=== PATIENT | male | born 1945 | race Caucasian/White ===

== ENCOUNTER 2019-05-25 13:56 | Observation (INO) | payer MEDICARE, SELFPAY ==
[2019-05-25] VITALS (11 sets, daily range): BP systolic 145–177; BP diastolic 72–93; PULSE 66–87; RESP 13–17; TEMP 36.7–36.9; O2SAT 95–98; BMI 30.2; BMI 26.9
--- NOTE | 2019-05-25 14:00 | NURSING ---
[id number] STROKE ALERT CALLED. CHEMISTRY SPECIALIST
--- NOTE | 2019-05-25 14:01 | NURSING ---
NO OLD EKGS
--- NOTE | 2019-05-25 14:03 | EKG12_ITS ---
Test Reason : NEURO S/X Blood Pressure : / mmHG Vent. Rate : 062 BPM Atrial Rate : 062 BPM P-R Int : 172 ms QRS Dur : 098 ms QT Int : 404 ms P-R-T Axes : 040 -22 021 degrees QTc Int : 410 ms Normal sinus rhythm Moderate voltage criteria for LVH, may be normal variant Poor R-Wave Progression Borderline ECG Confirmed by BYRON CHACKO, DIANNA ([id number]), city editor AZUL CLAROS ([id number]) on 05/29/2019 9:29:05 AM Referred By: LYNNE Confirmed By:DIANNA MATTHEWS MD
--- NOTE | 2019-05-25 14:03 | CT_ITS ---
STUDY: CT BRAIN WITHOUT CONTRAST REASON FOR EXAM: Male, 73 years old. CVA. RADIATION DOSAGE (If Supplied By Facility): CTDIvol = ( 44.99 ) mGy, DLP = ( 829.85 ) mGycm TECHNIQUE: Transaxial CT imaging of the brain was performed without administration of intravenous contrast material. Individualized dose optimization techniques were used for this CT. COMPARISON: No relevant priors. FINDINGS: Normal soft tissue structures. Normal calvarium. There is mild cerebral atrophy with widening of the extra-axial spaces and ventricular dilatation. Normal white matter tracts of the cerebral hemispheres. Normal basal ganglia and thalami. Normal brainstem. There is mild cerebellar atrophy. There is no intracranial hemorrhage. There are no findings of an acute ischemic infarction. Atherosclerotic calcification of the cavernous portions of the internal carotid arteries as well as the vertebral arteries. Partial opacification of the left maxillary sinus and ethmoid sinuses. CT/Brain/Head without Contrast IMPRESSION: Chronic involutional changes of the brain. Partial opacification of the left maxillary sinus and ethmoid sinuses. N.B. : The above information has been verbally conveyed by Brendon Jerome to Faizan Mike on 05/25/2019 14:14:56 (ET). Electronically Signed: Brendno Jerome, at 14:16 EDT , Service support ,
[2019-05-25 14:09] LABS: Absolute Lymphocyte Count 1.91 X10^3/uL (0.83-4.51); Absolute Neutrophil Count 4.5 X10^3/uL (2.0-7.7); Basophil# 0.04 X10^3/uL; Basophil% 0.6 % (0-1); Eosinophil# 0.34 X10^3/uL; Eosinophils% 4.7 % (0-5); Hematocrit 47.3 % (40-54); Hemoglobin 15.7 g/dL (13.0-16.5); Lymphocyte # 1.91 X10^3/ul (4.0); Lymphocyte % 26.3 % (19-41); Mean Corp Hgb Conc 33.2 g/dL (32-36); Mean Corpuscular Hgb 28.5 pg (27.0-32.0); Mean Platelet Vol. 10.4 fl (6.2-12.0); Monocyte# 0.47 X10^3/uL; Monocyte% 6.5 % (0-10); NRBC Flagged by Analyzer 0 % (0-5); Neutrophil # 4.48 X10^3/uL (2.7-7.7); Neutrophil % 61.6 % (47-70); Platelet Count 192 K/mm3 (150-450); RBC Distribution Width CV 12.7 % (11.6-14.6); RBC Distribution Width SD 39.5 fl (35.1-43.9); White Blood Count 7.3 K/mm3 (4.4-11.0)
--- NOTE | 2019-05-25 14:15 | RAD_ITS ---
STUDY: X-RAY CHEST REASON FOR EXAM: Male, 73 years old. Cough. TECHNIQUE: Single AP portable view of the chest. COMPARISON: None. FINDINGS: EKG electrodes are seen. The lungs are clear and expanded. There is no demonstrated pleural abnormality. Normal size heart. Normal mediastinum and angel. Normal visualized pulmonary arteries. There is atherosclerotic calcification of the aortic arch with tortuosity. There are diffuse degenerative changes of the visualized thoracic spine. Normal visualized ribs, clavicles, and shoulders. There is no demonstrated abnormality of the visualized soft tissue structures of the upper abdomen. RAD/Chest 1 View IMPRESSION: No acute abnormality is seen. Electronically Signed: Brendon Jerome, at 14:30 EDT , Service support ,
[2019-05-25 14:16] LABS: Prothrombin Time (Protime)PT. 12.9 SECONDS (11.7-14.9)
[2019-05-25 14:17] LABS: Partial Thromboplast Time 27.5 Seconds (24.1-36.2)
[2019-05-25 14:26] LABS: Anion Gap 8 (5-15); BUN 15 mg/dL (7-18); BUN/Creat Ratio 10.5 RATIO (10-20); Calcium,Total 9.8 mg/dL (8.5-10.1); Chloride 102 mmol/L (98-107); Creatinine, Serum 1.43 mg/dL (0.70-1.30); EST Glomerular Filtration Rate 51 mL/min (>60); Est Glom Filt Rate - Afr Amer 62 mL/min (>60); Estimated Creatinine Clearance 43.18 ml/min; Glucose 113 mg/dL (74-106); Potassium 4.8 mmol/L (3.5-5.1); Sodium Level 137 mmol/L (136-145)
--- NOTE | 2019-05-25 14:46 | ED.DCSUM_ITS ---
- ER Visit Summary Date of Service: 05/25/19 Chief Complaint: Left leg weakness and paresthesias History of Present Illness: The patient is a 73 M who presents with left leg weakness and paresthesias. Symptoms started about 30 minutes prior to presentation. He was helping a friend when he had to sit down because he did not feel right. He noted some weakness of his left arm and leg and was having paresthesias of his leg and face. He states that his arm is better and he has no facial numbness but he still has the lower leg symptoms. Denies any falls or trauma. No history of stroke in the past. He denies a headache. He is not on any blood thinning medications. Physical Examination: Vital signs reviewed. HEENT exam unremarkable. Heart is regular rate and rhythm without murmurs. Lungs are clear bilaterally. Abdomen is soft and nontender. Skin exam reveals no rashes. His stroke scale score is 2, 1 for left leg weakness and 1 for sensory. His neurologic exam is otherwise normal Test Results: CAT scan of the head reveals chronic findings with nothing acute. EKG was sinus rhythm with a rate of 62. CBC is normal. Creatinine is 1.43. Troponin normal Emergency Department Course and Treatment: Stroke team was called prehospital. The [facility] neurologist evaluated the patient and his NIH actually improved slightly. He feels this is likely a TIA. We will not give TPA due to low NIH. His ABCD 2 score is 6 which is high risk due to his age, blood pressure, symptoms and history of diabetes. Patient was discussed with the hospitalist and the patient will be admitted to the hospital Treatment Plan: [] Disposition: Admit Impression: TIA This note was generated with [employer] dictation software. It may contain incorrect words, spelling, and punctuation that were not noted in review of the chart prior to signing ED Disposition - Plan for ED Patient: Referrals: Joaquin Foster [Primary Care Provider] -
[2019-05-25] MEDS: Aspirin 325 MG Tablet PO (15:14)
--- NOTE | 2019-05-25 15:23 | CHAPLAIN ---
Type of Pastoral Visit ___ Initial Visit ___ Follow-up Visit ___ On-call Visit ___ General Patient Visit ___ Spiritual Assessment ___ Family Conference ___ Bereavement _x__ Rapid Response ___ Code Blue ___ Other (describe below) Pastoral Care Referral From ___ Patient ___ Family ___ Nurse ___ Physician ___ Formstone Fitter ___ Candy Dipper _x__ Other (describe below) Sacrament/Intervention _x__ Active listening ___ Anointing ___ Caodaism ___ Bereavement ___ Communion ___ Lucrecia exploration ___ ___ Life review _x__ Prayer ___ Reconciliation ___ Sacrament of Sick _x__ Supportive presence ___ Wedding ___ Other (describe below) Pastoral Comments met with family members and escorted them to patient room at appropriate time; daughter requested prayer for pt; after testing done this chute puller made introduction and offer of support to patient;
--- NOTE | 2019-05-25 15:57 | HP.PCM_ITS ---
Problem List (1) TIA (transient ischemic attack) Status: Acute History of Present Illness Date of Admission: 05/25/19 Chief Complaint: left sided weakness The patient is a 73 year old M who was in his normal state of health but around 1230 this afternoon, patient was with some friends and then noted that his left side was weak and numb. [place] that his lower lip on his left was numb and try to raise his left arm and noticed that it was ataxic. Patient was brought to the emergency room and underwent a work-up for stroke. Patient also had a telemedicine stroke doctor from [facility] and did not feel the patient required TPA. Symptoms are improving greatly and essentially resolved at this time. Patient is never had a stroke before. [] Past Medical History Medical History: Medical History (Last Updated 05/25/19 @ 16:00 by Uriel Menezes DO) BPH (benign prostatic hyperplasia) N40.0 DM2 (diabetes mellitus, type 2) E11.9 HTN (hypertension) I10 Allergies No Known Allergies Allergy (Verified 05/25/19 14:13) Home Medications: Ambulatory Orders Medication Instructions Recorded Amlodipine Besylate/Benazepril 1 ea PO DAILY 05/25/19 [Amlodipine-Benazepril 5-10 mg] Lisinopril 5 mg PO DAILY 05/25/19 Metformin HCl [Metformin HCl ER] 500 mg PO DAILY 05/25/19 Simvastatin 20 mg PO QHS 05/25/19 Tamsulosin HCl 0.4 mg PO DAILY 05/25/19 Lives: Spouse/ Significant Other Smoking Status: Never smoker Tobacco Use: Non-smoker Alcohol: None Drugs: None - *Family History Maternal History Items: - - no CVA Review of Systems Constitutional: Denies: Anorexia, Chills, Fever Eyes: Denies: Blurred vision, Double vision HEENT: Denies: Head Aches, Sinus Congestion, Sinus Drainage Cardiovascular: Reports: Chest Pain - chest pain 3 times the past year he has had some chest pain that feels like baking soda water something very exertional. This is not consistent when he does think that are very exertional but occur very sporadically.. Denies: Palpitations Respiratory: Denies: Cough, Shortness of breath at rest, Sputum production Gastrointestinal: Denies: Abdominal Pain, Nausea, Vomiting Genitourinary: Reports: Frequency. Denies: Dysuria Musculoskeletal: Denies: Joint Pain, Joint Tenderness Skin: Denies: Rash, Wounds Neurological: Reports: Focal weakness. Denies: Slurred speech, Headaches, Incoordination Psychiatric: Denies: Anxiety, Depression Endocrine: Denies: Change in Body Habitus, Heat/ Cold Intolerance Hematologic/ Lymphatic: Denies: Easy Bruising, Easy Bleeding, Hx of blood clot Comment: A 10 point review of systems were negative except as mentioned in the history of present illness and the other review of systems. VTE Information - Inpt Only VTE Present on Admission: No VTE Mechan Device Prophylaxis: None VTE Pharm Prophylaxis ordered?: Yes Patient Problems: Active and Suspected Problems (Last Updated 05/25/19 @ 16:00 by Uriel Menezes DO) TIA (transient ischemic attack) (Acute) - Physical Exam Vitals/I&O's: Vital Signs Temp Pulse Resp BP Pulse Ox 36.7 C 78 17 167/88 H 95 05/25/19 14:05 05/25/19 15:36 05/25/19 15:36 05/25/19 15:36 05/25/19 14:33 Oxygen Delivery Method Room Air Weight: 90 kg Body Mass Index (BMI) 30.2 Finger Stick Blood Glucose 105 General: Alert, Cooperative, No apparent distress, Well developed, Well nourished HEENT: Atraumatic, PERRLA, EOMI, Normocephalic Oral: Moist Mucosa, No Gingival or Mucosal Lesions/ Ulcerations Neck: No Nodes, Trachea Midline Lungs: Clear to auscultation, Normal air movement, No rhonchi, No wheeze, No rales, Diminished Cardiovascular: Regular rate, Regular Rhythm, Normal S1, Normal S2, No murmurs Abdomen: Bowel Sounds Present, Soft, Non Tender, Non-Distended, No Hepato- splenomegaly Extremities: No edema, No Calf Tenderness Skin: No rashes, No breakdown Musculoskeletal: No Tenderness to Palpation of Joints or Extremities, No Muscle Wasting Neurological: Cranial nerves II-XII grossly intact, Deep Tendon Reflexes 2+/4 and Symmetrical, Neuro grossly intact, Motor Exam 5/5 strength throughout, Sensory exam intact to light touch and pain, Coordination normal Psych/Mental Status: Normal Affect, Appropriate Laboratory Results 05/25/19 14:01: WBC 7.3, RBC 5.50, Hgb 15.7, Hct 47.3, MCV 86.0, MCH 28.5, MCHC 33.2, RDW Std Deviation 39.5, RDW Coeff of Stefano 12.7, Plt Count 192, MPV 10.4, Immature Gran % (Auto) 0.300, Neut % (Auto) 61.6, Lymph % (Auto) 26.3, Chaffee % (Auto) 6.5, Eos % (Auto) 4.7, Baso % (Auto) 0.6, Absolute Neuts (auto) 4.5, Absolute Lymphs (auto) 1.91, Nucleated RBC % 0 05/25/19 14:01: PT 12.9, INR 1.0, APTT 27.5 05/25/19 14:01: Sodium 137, Potassium 4.8, Chloride 102, Carbon Dioxide 27.0, Anion Gap 8, BUN 15, Creatinine 1.43 H, Estim Creat Clear Calc 43.18, Est GFR (MDRD) Af Amer 62, Est GFR (MDRD) Non-Af 51 L, BUN/Creatinine Ratio 10.5, Glucose 113 H, Calcium 9.8, Troponin I < 0.015 EKG reviewed and showed normal sinus rhythm without any acute changes. Clinical Impression(s) from Imaging Studies Brain CT 05/25/19 14:03 IMPRESSION: Chronic involutional changes of the brain. Partial opacification of the left maxillary sinus and ethmoid sinuses. N.B. : The above information has been verbally conveyed by Brendon Jerome to Faizan [facility] on 05/25/2019 14:14:56 (ET). Electronically Signed: Brendon Jerome, at 14:16 EDT , Service support , ADDENDUM: 05/25/19 1423 IMPRESSION: Chronic involutional changes of the brain. Partial opacification of the left maxillary sinus and ethmoid sinuses. N.B. : The above information has been verbally conveyed by Brendon Jerome to Faizan [facility] on 05/25/2019 14:14:56 (ET). Electronically Signed: Brendon Jerome, at 14:16 EDT , Service support , Chest X-Ray 05/25/19 14:15 IMPRESSION: No acute abnormality is seen. Electronically Signed: Brendon Jerome, at 14:30 EDT , Service support , Assessment/Plan All Active Problems (Last Updated 05/25/19 @ 16:00 by Uriel Menezes DO) TIA (transient ischemic attack) (Acute) 1. Suspected acute TIA * Symptoms are essentially resolved at this time * NIH is currently 0 * Patient will be on aspirin as well as statin * MRI of the brain, MRA of the head neck, echocardiogram * Evaluation by physical and Occupational Therapy * Neurology consultation 2. Diabetes mellitus type 2 * Check an A1c * Continue with metformin * Signed scale insulin for now 3. Hypertension * Elevated at this time * Will permit hypertension because of the possible acute TIA or stroke 4. VTE prophylaxis with enoxaparin. Case discussed with the patient's family at bedside. Code Visit Inpatient E&M: 07086 Init Hosp L3
--- NOTE | 2019-05-25 16:04 | ECHOD_ITS ---
Reason For Study: TIA/CVA Procedure This was a 2D Doppler, Color Flow transthoracic echocardiogram. The study was technically difficult. Exam performed portable in patient room. Left Ventricle Normal LV size. Left ventricular systolic function is normal. The estimated ejection fraction is 65 %. No evidence for diastolic dysfunction. No regional wall motion abnormalities noted. Right Ventricle Normal RV size. Normal systolic function. Atria Normal left atrium. Normal right atrium. No doppler evidence for ASD. Mitral Valve There is no mitral annular calcification. Mild focal mitral valve calcification of the anterior leaflet. Trivial mitral valve insufficiency. Tricuspid Valve Normal tricuspid valve. Trivial tricuspid valve insufficiency. Right ventricular systolic pressure estimated to be 28 mmHg. Aortic Valve Trisinus/trileaflet aortic valve. Mild focal aortic valve calcification. Trivial aortic valve insufficiency. Pulmonic Valve The pulmonic valve is not well visualized. Mild (1+) pulmonic valve insufficiency. Great Vessels Normal sized aortic root. Pericardium/Pleural No pericardial effusion. Medication Performed a rapid injection of agitated mix of 9 cc saline and 1cc air to assess for atrial septal defect. MMode/2D Measurements & Calculations LVIDd: 4.9 cm IVSd: 1.1 cm Ao root diam: 3.3 cm LVIDs: 2.9 cm LVPWd: 1.1 cm RVDd: 3.0 cm FS: 39.8 % LAV(MOD-bp): 42.2 ml LA A4 area: 17.0 cm2 LA dimension(2D): 4.3 cm LAV(MOD-bp) Indexed: 20.8 ml/m2 LAV(MOD-sp2): 37.8 ml LAV(MOD-sp4): 46.3 ml RA A4 area: 14.7 cm2 Time Measurements MV dec time: 0.29 sec Doppler Measurements & Calculations MV E max leroy: 62.4 cm/sec Lat Peak E' Leroy: 4.6 cm/sec Med Peak E' Leroy: 5.2 cm/sec MV A max leroy: 100.7 cm/sec E/E' lat: 13.4 E/E' med: 12.1 MV E/A: 0.62 Ao V2 max: 129.0 cm/sec LV V1 max: 95.6 cm/sec PA V2 max: 133.8 cm/sec Ao max P.7 mmHg LV V1 max P.7 mmHg TR max leroy: 251.1 cm/sec TR max P.2 mmHg Interpretation Summary The study was technically difficult. Left ventricular systolic function is normal. The estimated ejection fraction is 65 %. Mild focal mitral valve calcification of the anterior leaflet. Trivial mitral valve insufficiency. Trivial tricuspid valve insufficiency. Mild focal aortic valve calcification. Trivial aortic valve insufficiency. Mild (1+) pulmonic valve insufficiency. Right ventricular systolic pressure estimated to be 28 mmHg. No evidence for diastolic dysfunction. Ordering Physician: Uriel Menezes Referring Physician: SYEDA BAH Performed By: Roberta Roman, KACIE, RVT
[2019-05-25] MEDS: 0.9% Normal Saline 1,000 ML 125 ML IV (16:45)
[2019-05-25] MEDS: 0.9% Saline Lock 10 ML Syringe IV (16:46)
[2019-05-25 16:51] LABS: Bedside Glucose 114 mg/dL (70-110)
[2019-05-25] MEDS: Atorvastatin Calcium 20 MG Tablet PO (21:28)
[2019-05-25 21:36] LABS: Bedside Glucose 103 mg/dL (70-110)
[2019-05-26] VITALS (8 sets, daily range): BP systolic 134–161; BP diastolic 62–78; PULSE 55–75; RESP 16; TEMP 36.7–37; O2SAT 95–99; BMI 26.9
[2019-05-26] MEDS: Enoxaparin 40 MG/0.4 ML Syringe SC (06:21)
[2019-05-26 06:31] LABS: Bedside Glucose 100 mg/dL (70-110)
[2019-05-26 07:00] LABS: Anion Gap 5 (5-15); BUN 17 mg/dL (7-18); BUN/Creat Ratio 11.4 RATIO (10-20); Calcium,Total 9.3 mg/dL (8.5-10.1); Chloride 109 mmol/L (98-107); Cholesterol 129 mg/dL (200); Creatinine, Serum 1.49 mg/dL (0.70-1.30); EST Glomerular Filtration Rate 49 mL/min (>60); Est Glom Filt Rate - Afr Amer 59 mL/min (>60); Estimated Creatinine Clearance 44.23 ml/min; Glucose 104 mg/dL (74-106); High Density Lipoprotein 40 mg/dL; Potassium 4.2 mmol/L (3.5-5.1); Sodium Level 141 mmol/L (136-145); Triglycerides 109 mg/dL; Very Low Density Lipoprotein 22 mg/dL (5-40)
--- NOTE | 2019-05-26 08:00 | MRI_ITS ---
STUDY: MRI BRAIN WITHOUT CONTRAST REASON FOR EXAM: Male, 73 years old. TIA, episode yesterday of lip numbness, left arm and leg altered sensation. TECHNIQUE: Standardized multiplanar fat and water weighted pulse sequences were obtained. COMPARISON: 05/25/2019 CT of the head FINDINGS: There is mild cerebral atrophy with widening of the extra-axial spaces and ventricular dilatation. There are a limited number of small white matter hyperintensities, distributed throughout the deep white matter tracts of the cerebral hemispheres, consistent with mild chronic white matter ischemic changes. Normal bilateral basal ganglia. Normal thalami. There is no extra-axial fluid accumulation. Normal flow voids within the major intracranial circulation suggesting patency by spin echo criteria. Normal sella turcica, pituitary gland, infundibular stalk, optic chiasm and hypothalamus. Normal tectal plate and pineal gland. Normal midbrain, karel and medulla. Normal cerebellum. Normal basal cisterns. MRI/Brain without Contrast IMPRESSION: No acute intracranial abnormality. Electronically Signed: Roland Lacey MD at 10:01 EDT Tel , Service support ,
--- NOTE | 2019-05-26 08:00 | MRI_ITS ---
STUDY: MRA NECK WITH AND WITHOUT CONTRAST REASON FOR EXAM: Male, 73 years old. L SIDED NUMBNESS. TECHNIQUE: 3-D [id number] (TOF) imaging was performed in an 1.5 T MRI scanner. IV Dotarem 15 was administered for the contrast enhanced images. COMPARISON: None. FINDINGS: RIGHT CAROTID ARTERIES: Antegrade flow within the right common carotid artery (CCA). Antegrade flow within the right carotid bulb. There is smooth narrowing of the proximal left internal carotid artery with less than 50% cross sectional diameter stenosis. Antegrade flow within the visualized cervical portion of the right internal carotid artery. LEFT CAROTID ARTERIES: Antegrade flow within the left common carotid artery (CCA). Antegrade flow within the left common carotid bulb. Antegrade flow within the origin of the left internal carotid (ICA) artery. Antegrade flow within the visualized cervical portion of the left internal carotid artery. VERTEBRAL ARTERIES: There is antegrade flow within the bilateral vertebral arteries with a small right vertebral artery, and a dominant left vertebral artery. MRI/MRA Neck WITH and W/O Contrast IMPRESSION: Approximately 50% narrowing of the right ICA. Further evaluation with sonography is recommended. Electronically Signed: Roland Lacey MD at 11:06 EDT Tel , Service support ,
--- NOTE | 2019-05-26 08:00 | MRI_ITS ---
STUDY: MRA OF THE HEAD WITHOUT CONTRAST REASON FOR EXAM: Male, 73 years old. TIA, episode yesterday of lip numbness, left arm and leg altered sensation. TECHNIQUE: 3-D [id number] (TOF) imaging was performed with MIPs. The study was performed unenhanced. COMPARISON: None. FINDINGS: Patent right cavernous carotid artery. Patent left cavernous carotid artery. Patent right A1 segments of the anterior cerebral artery. Patent left A1 segments of the anterior cerebral artery. Unremarkable anterior communicating artery (ACOM) region. Normal bilateral A2 segments of the anterior cerebral arteries. Patent right M1 and M2 segments of the middle cerebral arteries, with a unremarkable M1 bifurcation. Patent left M1 and M2 segments of the middle cerebral arteries, with a unremarkable M1 bifurcation. There is non-visualization of the right posterior communicating artery (PCOM). There is non-visualization of the left posterior communicating artery (PCOM). Patent basilar artery with a normal basilar bifurcation. Patent bilateral posterior cerebral arteries. MRI/MRA Head ONLY without Contrast IMPRESSION: Unremarkable MRA of the brain Electronically Signed: Roland Lacey MD at 10:03 EDT Tel , Service support ,
[2019-05-26] MEDS: Aspirin 81 MG TAB.CHEW PO (08:16)
[2019-05-26 08:25] LABS: Bedside Glucose 105 mg/dL (70-110)
[2019-05-26 11:06] LABS: Bedside Glucose 170 mg/dL (70-110)
--- NOTE | 2019-05-26 11:16 | EKG12_ITS ---
Test Reason : CVA Blood Pressure : / mmHG Vent. Rate : 068 BPM Atrial Rate : 068 BPM P-R Int : 182 ms QRS Dur : 098 ms QT Int : 376 ms P-R-T Axes : 036 -29 021 degrees QTc Int : 399 ms Normal sinus rhythm Minimal voltage criteria for LVH, may be normal variant Poor R wave progression Borderline ECG Confirmed by BYRON CHACKO, DIANNA ([id number]), editorial project manager AZUL CLAROS ([id number]) on 05/31/2019 11:24:31 AM Referred By: SIMONA Confirmed By:DIANNA MATTHEWS MD
--- NOTE | 2019-05-26 11:18 | DCINST_ITS ---
- Discharge Diagnoses Current Active Problems: Current Active and Chronic Problems (Last Updated 05/25/19 @ 16:00 by Uriel Menezes DO) TIA (transient ischemic attack) (Acute) You will use the following diet at home:: Calorie/Carbohydrate Controlled (specify 1200, 1400, etc) - 1800 alberto /day, Cardiac Your food should be the consistency of: Regular Your liquids should be the consistency of: Regular/Thin Discharge Activity: Return to Normal Activity Allergies/Adverse Reactions: Allergies No Known Allergies Allergy (Verified 05/25/19 14:13) Medications to take at Discharge Amlodipine Besylate/Benazepril [Amlodipine-Benazepril 5-10 mg] 1 ea PO DAILY 05/25/19 Lisinopril 5 mg PO DAILY 05/25/19 Metformin HCl [Metformin HCl ER] 500 mg PO DAILY 05/25/19 Tamsulosin HCl 0.4 mg PO DAILY 05/25/19 Aspirin [Aspirin, Baby] 81 mg PO DAILY@0800 tab.chew 05/26/19 Clopidogrel Bisulfate [Plavix] 75 mg PO DAILY #21 tab 05/26/19 Simvastatin 40 mg PO DAILY #30 tab 05/26/19 The following prescriptions were given: Clopidogrel Bisulfate [Plavix] 75 mg PO DAILY #21 tab Transmission Status: Pending to [id number] Simvastatin 40 mg PO DAILY #30 tab Transmission Status: Pending to [facility]/pharmacy #[id number] Primary Care Physician: Joaquin Foster [NON-STAFF] - Please follow up with your Primary Care Physician in: 1-2 weeks Test Results: Test results from this visit will be discussed in further detail at your follow- up appointment, if applicable. Please Follow Up With: Behzad Villanueva MD When: 3-4 weeks Proposed Discharge Date: 05/26/19
--- NOTE | 2019-05-26 11:54 | PCM.CONS.GEN ---
Problem List (1) TIA (transient ischemic attack) Status: Acute Reason for Consult Date of Consultation: 05/26/19 Reason for Consultation: TIA History of Present Illness: The patient is a 73 year old M H HTN, HLD, DM admitted with left-sided weakness and numbness. Per patient he developed acute onset left facial numbness, left-sided numbness and left-sided weakness around 1 PM yesterday 05/25/2019, lasted for about 2 to 3 hours before it improved, stroke alert was called on admission per ED documentation, [facility] telemetry stroke had seen the patient and was patient was deemed not a TPA candidate due to low NIHSS. NIHSS on admission was 2. At present patient denies any focal motor weakness, sensory loss, headache, dizziness, speech disturbances or visual disturbances. Per patient he lives with his , denies any frequent falls, does not use cane or walker to ambulate, does drive and does not any need any assistance for his ADLs. Start on aspirin at baseline. MRI brain done on admission did not show any acute stroke, MRA head did not show any hemodynamically significant stenosis or occlusion and MRA neck was reported to show 50% stenosis in the right JONE. [] Past Medical History Medical History: Medical History (Last Updated 05/25/19 @ 16:00 by Uriel Menezes DO) BPH (benign prostatic hyperplasia) N40.0 DM2 (diabetes mellitus, type 2) E11.9 HTN (hypertension) I10 Allergies No Known Allergies Allergy (Verified 05/25/19 14:13) Home Medications: Ambulatory Orders Medication Instructions Recorded Amlodipine Besylate/Benazepril 1 ea PO DAILY 05/25/19 [Amlodipine-Benazepril 5-10 mg] Lisinopril 5 mg PO DAILY 05/25/19 Metformin HCl [Metformin HCl ER] 500 mg PO DAILY 05/25/19 Tamsulosin HCl 0.4 mg PO DAILY 05/25/19 Aspirin [Aspirin, Baby] 81 mg PO DAILY@0800 tab.chew 05/26/19 Clopidogrel Bisulfate [Plavix] 75 mg PO DAILY #21 tab 05/26/19 Simvastatin 40 mg PO DAILY #30 tab 05/26/19 Lives: Spouse/ Significant Other Smoking Status: Never smoker Tobacco Use: Non-smoker Alcohol: None Drugs: None - *Family History Maternal History Items: - - no CVA Review of Systems Constitutional: Reports: - - Complete ROS negative except as documented in HPI Patient Problems: Active and Suspected Problems (Last Updated 05/25/19 @ 16:00 by Uriel Menezes DO) TIA (transient ischemic attack) (Acute) - Physical Exam Vitals/I&O's: Vital Signs Temp Pulse Resp BP Pulse Ox 98.0 F 62 16 157/62 H 98 05/26/19 08:00 05/26/19 08:00 05/26/19 08:00 05/26/19 08:00 05/26/19 08:00 Oxygen Delivery Method Room Air Weight: 85.003 kg Body Mass Index (BMI) 26.9 Finger Stick Blood Glucose 105 Intake and Output for Last 24 Hours 05/24/19 05/25/19 05/26/19 23:59 23:59 23:59 Intake Total 560 / 560 1000 / 1000 Balance 560 / 560 1000 / 1000 General: Alert HEENT: Normocephalic Neck: Supple Lungs: Clear to auscultation Cardiovascular: Normal S1, Normal S2 Abdomen: Bowel Sounds Present Extremities: No cyanosis Neurological: - - Conscious, alert, AOA x3, CN II to XII grossly intact, power 5 x 5 both upper and lower extremities, no sensory loss, no cerebellar signs, gait deferred, reflexes + B/L B/S/T/K/A, No NR, NIHSS 0 at present, mRS 0 at baseline Psych/Mental Status: Normal Affect Laboratory Results 05/25/19 13:57: POC Glucose 105 05/25/19 14:01: WBC 7.3, RBC 5.50, Hgb 15.7, Hct 47.3, MCV 86.0, MCH 28.5, MCHC 33.2, RDW Std Deviation 39.5, RDW Coeff of Stefano 12.7, Plt Count 192, MPV 10.4, Immature Gran % (Auto) 0.300, Neut % (Auto) 61.6, Lymph % (Auto) 26.3, Brown % (Auto) 6.5, Eos % (Auto) 4.7, Baso % (Auto) 0.6, Absolute Neuts (auto) 4.5, Absolute Lymphs (auto) 1.91, Nucleated RBC % 0 05/25/19 14:01: PT 12.9, INR 1.0, APTT 27.5 05/25/19 14:01: Sodium 137, Potassium 4.8, Chloride 102, Carbon Dioxide 27.0, Anion Gap 8, BUN 15, Creatinine 1.43 H, Estim Creat Clear Calc 43.18, Est GFR (MDRD) Af Amer 62, Est GFR (MDRD) Non-Af 51 L, BUN/Creatinine Ratio 10.5, Glucose 113 H, Calcium 9.8, Troponin I < 0.015 05/25/19 16:42: POC Glucose 114 H 05/25/19 21:26: POC Glucose 103 05/26/19 05:55: Sodium 141, Potassium 4.2, Chloride 109 H, Carbon Dioxide 27.0, Anion Gap 5, BUN 17, Creatinine 1.49 H, Estim Creat Clear Calc 44.23, Est GFR (MDRD) Af Amer 59 L, Est GFR (MDRD) Non-Af 49 L, BUN/Creatinine Ratio 11.4, Glucose 104, Calcium 9.3, Triglycerides 109, Cholesterol 129, LDL Cholesterol 67, VLDL Cholesterol 22, HDL Cholesterol 40 05/26/19 05:55: Hemoglobin A1c 6.0 05/26/19 06:20: POC Glucose 100 05/26/19 10:58: POC Glucose 170 H Current Medications Acetaminophen (Tylenol) 650 mg PO Q6H PRN PRN PRN Reason: Pain Score 1-3/Temp > 100.7 F Aspirin (Aspirin, Baby) 81 mg PO DAILY@0800 [facility] Last Admin: 05/26/19 08:16 Dose: 81 mg Documented by: Atorvastatin Calcium (Lipitor) 40 mg PO QHS [facility] Clopidogrel Bisulfate (Plavix) 75 mg PO DAILY [facility] Stop: 06/16/19 10:01 Dextrose (D50w Syringe) 0 gm IV X1 PRN; Protocol PRN Reason: Hypoglycemia Enoxaparin Sodium (Lovenox) 40 mg SC DAILY@0600 [facility] Last Admin: 05/26/19 06:21 Dose: 40 mg Documented by: Glucagon () 1 mg IM .X1 PRN PRN Reason: Hypoglycemia Insulin Human Lispro (Humalog Kwikpen (Bkc)) 0 unit SC TIDAC [facility]; Protocol Last Admin: 05/26/19 11:06 Dose: Not Given Documented by: Met[facility] ([facility]) [facility] Last Admin: 05/26/19 08:14 Dose: Not Given Documented by: Ondansetron HCl (Zofran) 4 mg IV Q8H PRN PRN PRN Reason: NAUSEA/VOMITING Senna/Docusate Sodium (Senokot-S, Isabel-Colace) 2 tablet PO BID PRN PRN PRN Reason: Constipation Sodium Chloride () 10 - 40 ml IV UD PRN PRN Reason: SALINE FLUSH Last Admin: 05/25/19 16:46 Dose: 10 ml Documented by: Sodium Chloride () 10 - 40 ml IV UD PRN PRN Reason: SALINE FLUSH Tamsulosin HCl (Flomax) 0.4 mg PO DAILY@1730 [facility] Assessment/Plan All Active Problems (Last Updated 05/25/19 @ 16:00 by Uriel Menezes DO) TIA (transient ischemic attack) (Acute) The patient is a 73 year old M H HTN, HLD, DM admitted with left-sided weakness and numbness. Per patient he developed acute onset left facial numbness, left-sided numbness and left-sided weakness around 1 PM yesterday 05/25/2019, lasted for about 2 to 3 hours before it improved, stroke alert was called on admission per ED documentation, [facility] telemetry stroke had seen the patient and was patient was deemed not a TPA candidate due to low NIHSS. NIHSS on admission was 2. At present patient denies any focal motor weakness, sensory loss, headache, dizziness, speech disturbances or visual disturbances. Per patient he lives with his , denies any frequent falls, does not use cane or walker to ambulate, does drive and does not any need any assistance for his ADLs. Start on aspirin at baseline. MRI brain done on admission did not show any acute stroke, MRA head did not show any hemodynamically significant stenosis or occlusion and MRA neck was reported to show 50% stenosis in the right JONE. Impression TIA Plan -Aspirin 81 mg p.o. once daily and Plavix 75 mg p.o. once daily. Dual antiplatelet for 3weeks then switch to single antiplatelet with aspirin. Bleeding risk discussed in detail with the patient -Lipitor 40 mg p.o. nightly -MRI brain images reviewed, MRA head/neck reviewed -P A1c 6, LDL 67 -TTE-p -30-day event recorder on discharge -PT/OT/ST -GI/DVT prophylaxis -Fall precautions -Further medical management per hospitalist team -Please call with questions if any -Follow-up with neurology in 4 weeks -Thank you for allowing us to participate in patient's care and management This note has been generated using [employer] dictation software. It may contain incorrect words, spellings and punctuation that were not noted in the review of the note prior to signing Code Visit Inpatient E&M: 64781 Init Hosp L3
--- NOTE | 2019-05-26 12:22 | PHA.DC.MC ---
Pharmacy Service has performed discharge medication reconciliation and counseling for this patient. Of note; all medications reviewed, care team is aware pt on dual CARLOS-I medications (benazepril/lisinopril). Per home medlist, primary care has prescribed this. Decision to change medications will be differed to Primary Care. The patient's discharge medication list was reviewed for discrepancies and discrepancies were resolved. The patient was counseled on the following discharge medications and changes in medications for homegoing were reviewed. 1. PLAVIX: 75MG PO DAILY The Reason for Use, instructions for use, and potential side effects were reviewed for all new medications. The patient's questions regarding all of their medications were answered. The patient was able to verbally demonstrate an understanding of their discharge medications. Home Medications Amlodipine Besylate/Benazepril [Amlodipine-Benazepril 5-10 mg] 1 ea PO DAILY 05/25/19 Lisinopril 5 mg PO DAILY 05/25/19 Metformin HCl [Metformin HCl ER] 500 mg PO DAILY 05/25/19 Tamsulosin HCl 0.4 mg PO DAILY 05/25/19 Aspirin [Aspirin, Baby] 81 mg PO DAILY@0800 tab.chew 05/26/19 Clopidogrel Bisulfate [Plavix] 75 mg PO DAILY #21 tab 05/26/19 Simvastatin 40 mg PO DAILY #30 tab 05/26/19
--- NOTE | 2019-05-26 13:01 | DS.PCM_ITS ---
<Diego Lawson - Last Filed: 05/26/19 13:01> Discharge Date and Diagnosis - Problem List Patient Problems: Active and Suspected Problems (Last Updated 05/25/19 @ 16:00 by Uriel Menezes DO) TIA (transient ischemic attack) (Acute) Date of Admission: 05/25/19 Date of Discharge: 05/26/19 - Primary Discharge Diagnosis Active and Suspected Problems (Last Updated 05/25/19 @ 16:00 by Uriel Menezes DO) TIA (transient ischemic attack) (Acute) Hx BPH HTN DMt2 Hospital Course and Treatment Imaging Results: IMAGING: CT/Brain/Head without Contrast IMPRESSION: Chronic involutional changes of the brain. Partial opacification of the left maxillary sinus and ethmoid sinuses. N.B. : The above information has been verbally conveyed by Brendon Jerome to Faizan Mike on 05/25/2019 14:14:56 (ET). RAD/Chest 1 View IMPRESSION: No acute abnormality is seen. Echo: Interpretation Summary The study was technically difficult. Left ventricular systolic function is normal. The estimated ejection fraction is 65 %. Mild focal mitral valve calcification of the anterior leaflet. Trivial mitral valve insufficiency. Trivial tricuspid valve insufficiency. Mild focal aortic valve calcification. Trivial aortic valve insufficiency. Mild (1+) pulmonic valve insufficiency. Right ventricular systolic pressure estimated to be 28 mmHg. No evidence for diastolic dysfunction. MRI/Brain without Contrast IMPRESSION: No acute intracranial abnormality. MRI/MRA Head ONLY without Contrast IMPRESSION: Unremarkable MRA of the brain Consults: Kay - Neuro Operations: None Procedures: 2-D Echocardiogram Summary of Care Provided: Hospital course: The patient is a 73 year old M with past medical history of type 2 diabetes, hypertension, BPH, who presented to the emergency room with complaints of left- sided weakness. The patient states that he was in his normal state of health and then when he was hanging out with his friends sitting in a chair he suddenly developed left-sided lip tingling, upper and lower extremity weakness. He came to the emergency room and CT of the brain was obtained which did not show stroke. By the time he got to the emergency room his symptoms had completely resolved. They did last for a total of approximately 2-1/2 hours. He was admitted to the PCU and placed on telemetry. No events on telemetry. EKG was obtained with no acute change. MRI of the brain was obtained and did not show any acute stroke. Neurology was consulted and felt that his symptoms were consistent with a TIA. He was placed on aspirin and Plavix, he will take the Plavix for 3 weeks and then discontinue and continue the aspirin. His simvastatin dose was increased. MRA of the head and neck were obtained, MRA of the neck showed 50% narrowing of the right ICA, MRA of the head was unremarkable. Echocardiogram was obtained and is pending at this time. As he had no further symptoms he was felt stable for discharge. He will need to follow-up with neurology in 3 to 4 weeks, and follow-up with his PCP in 1 to 2 weeks. He was discharged home in stable condition. This patient was seen by Diego Lawson PA-C under the supervision of Doctor Monroy. [] Patient Problems: Active and Suspected Problems (Last Updated 05/25/19 @ 16:00 by Uriel Menezes DO) TIA (transient ischemic attack) (Acute) - Physical Exam Vitals/I&O's: Vital Signs Temp Pulse Resp BP Pulse Ox 98.0 F 62 16 157/62 H 98 05/26/19 08:00 05/26/19 08:00 05/26/19 08:00 05/26/19 08:00 05/26/19 08:00 Oxygen Delivery Method Room Air Weight: 187 lb 6.392 oz Body Mass Index (BMI) 26.9 Finger Stick Blood Glucose 105 Intake and Output for Last 24 Hours 05/24/19 05/25/19 05/26/19 23:59 23:59 23:59 Intake Total 560 / 560 1000 / 1000 Balance 560 / 560 1000 / 1000 General: Alert, Oriented x3, Cooperative HEENT: Atraumatic, PERRLA, EOMI, Normocephalic Neck: Supple, No JVD, Negative Carotid Bruits Lungs: Clear to auscultation, Normal air movement Cardiovascular: Regular rate, No murmurs Abdomen: Bowel Sounds Present, Soft, Non Tender Extremities: No edema, Capillary Refill Less than 3 Seconds Skin: No rashes, No breakdown Musculoskeletal: No Tenderness to Palpation of Joints or Extremities Neurological: Cranial nerves II-XII grossly intact Psych/Mental Status: Normal Affect, Appropriate, Alert and oriented to time, place, person, mood and affect Laboratory Results 05/25/19 13:57: POC Glucose 105 05/25/19 14:01: WBC 7.3, RBC 5.50, Hgb 15.7, Hct 47.3, MCV 86.0, MCH 28.5, MCHC 33.2, RDW Std Deviation 39.5, RDW Coeff of Stefano 12.7, Plt Count 192, MPV 10.4, Immature Gran % (Auto) 0.300, Neut % (Auto) 61.6, Lymph % (Auto) 26.3, [place] % (Auto) 6.5, Eos % (Auto) 4.7, Baso % (Auto) 0.6, Absolute Neuts (auto) 4.5, Absolute Lymphs (auto) 1.91, Nucleated RBC % 0 05/25/19 14:01: PT 12.9, INR 1.0, APTT 27.5 05/25/19 14:01: Sodium 137, Potassium 4.8, Chloride 102, Carbon Dioxide 27.0, Anion Gap 8, BUN 15, Creatinine 1.43 H, Estim Creat Clear Calc 43.18, Est GFR (MDRD) Af Amer 62, Est GFR (MDRD) Non-Af 51 L, BUN/Creatinine Ratio 10.5, Glucose 113 H, Calcium 9.8, Troponin I < 0.015 05/25/19 16:42: POC Glucose 114 H 05/25/19 21:26: POC Glucose 103 05/26/19 05:55: Sodium 141, Potassium 4.2, Chloride 109 H, Carbon Dioxide 27.0, Anion Gap 5, BUN 17, Creatinine 1.49 H, Estim Creat Clear Calc 44.23, Est GFR (MDRD) Af Amer 59 L, Est GFR (MDRD) Non-Af 49 L, BUN/Creatinine Ratio 11.4, Glucose 104, Calcium 9.3, Triglycerides 109, Cholesterol 129, LDL Cholesterol 67, VLDL Cholesterol 22, HDL Cholesterol 40 05/26/19 05:55: Hemoglobin A1c 6.0 05/26/19 06:20: POC Glucose 100 05/26/19 10:58: POC Glucose 170 H Current Medications Acetaminophen (Tylenol) 650 mg PO Q6H PRN PRN PRN Reason: Pain Score 1-3/Temp > 100.7 F Aspirin (Aspirin, Baby) 81 mg PO DAILY@0800 [facility] BEDS AT [facility] Last Admin: 05/26/19 08:16 Dose: 81 mg Documented by: Atorvastatin Calcium (Lipitor) 40 mg PO QHS [facility]S AT [facility] Clopidogrel Bisulfate (Plavix) 75 mg PO DAILY [facility] 234 B[facility]S AT [facility] Stop: 06/16/19 10:01 Dextrose (D50w Syringe) 0 gm IV X1 PRN; Protocol PRN Reason: Hypoglycemia Enoxaparin Sodium (Lovenox) 40 mg SC DAILY@0600 [facility]CLUDE 234 BEDS AT [facility] Last Admin: 05/26/19 06:21 Dose: 40 mg Documented by: Glucagon () 1 mg IM .X1 PRN PRN Reason: Hypoglycemia Insulin Human Lispro (Humalog Kwikpen (Bkc)) 0 unit SC TIDAC [facility] 234 BEDS AT [facility]; Protocol Last Admin: 05/26/19 11:06 Dose: Not Given Documented by: Metformin HCl (Glucophage Xr) 500 mg PO DAILYCM COUNTS INCLUDE 234 BEDS AT [facility] Last Admin: 05/26/19 08:14 Dose: Not Given Documented by: Ondansetron HCl (Zofran) 4 mg IV Q8H PRN PRN PRN Reason: NAUSEA/VOMITING Senna/Docusate Sodium (Senokot-S, Isabel-Colace) 2 tablet PO BID PRN PRN PRN Reason: Constipation Sodium Chloride () 10 - 40 ml IV UD PRN PRN Reason: SALINE FLUSH Last Admin: 05/25/19 16:46 Dose: 10 ml Documented by: Sodium Chloride () 10 - 40 ml IV UD PRN PRN Reason: SALINE FLUSH Tamsulosin HCl (Flomax) 0.4 mg PO DAILY@1730 COUNT[facility]CLUDE 234 BEDS AT [facility] Discharge Diet: Low fat/ Low Cholesterol, 1800 Calorie Control Diet, 2000 mg Sodium Diet Discharge Activity: Return to Normal Activity Home Medications: Medications to take at Discharge Amlodipine Besylate/Benazepril [Amlodipine-Benazepril 5-10 mg] 1 ea PO DAILY 05/25/19 Lisinopril 5 mg PO DAILY 05/25/19 Metformin HCl [Metformin HCl ER] 500 mg PO DAILY 05/25/19 Tamsulosin HCl 0.4 mg PO DAILY 05/25/19 Aspirin [Aspirin, Baby] 81 mg PO DAILY@0800 tab.chew 05/26/19 Clopidogrel Bisulfate [Plavix] 75 mg PO DAILY #21 tab 05/26/19 Simvastatin 40 mg PO DAILY #30 tab 05/26/19 Following Prescrptions Were Given to Patient: Clopidogrel Bisulfate [Plavix] 75 mg PO DAILY #21 tab Transmission Status: Received by [id number] Simvastatin 40 mg PO DAILY #30 tab Transmission Status: Received by [id number] Primary Care Physician: Joaquin Foster [NON-STAFF] - Please follow up with your Primary Care Physician in: 1-2 weeks Please Follow Up With: Behzad Villanueva MD When: 3-4 weeks Disposition: Home Minutes spent on discharge:: 35 Patient Condition:: Stable Medical Necessity - Tobacco Use Smoking Status: Never smoker Tobacco Use: Non-smoker Meaningful Use Info Meaningful Use Diagnoses (Choose all that apply): None applicable <Caroline Monroy - Last Filed: 05/26/19 13:15> Discharge Date and Diagnosis - Primary Discharge Diagnosis Active and Suspected Problems (Last Updated 05/25/19 @ 16:00 by Uriel Menezes DO) TIA (transient ischemic attack) (Acute) Hospital Course and Treatment Imaging Results: 05/26/19 08:00 Brain without Contrast [MRI] Routine MRA Head ONLY without Contrast [MRI] Routine MRA Neck WITH and W/O Contrast [MRI] Routine Summary of Care Provided: Hospitalist note: Discharge summary above reviewed and I concur with the above discharge treatment plan. Patient presented to the emergency room because of numbness on the left corner of the mouth and left-sided body weakness. His symptoms lasted for couple hours. Initial CT scan brain showed no acute findings, no hemorrhage or infarct. EKG revealed normal sinus rhythm without evidence of acute ischemic changes or cardiac arrhythmias. His symptoms completely resolved. MRI brain showed no acute abnormality. MRA of the head showed no significant vascular disease. MRA of the neck revealed approximately 50% narrowing of the right ICA. Patient symptoms attributed to transient ischemic attack. He was treated with aspirin, Plavix and statins. Neurology consulted and recommended to keep patient on aspirin and Plavix for now, increase dose of statins. 2D echocardiogram revealed ejection fraction 65%,. Patient discharged home in a stable medical condition, discharged on aspirin, Plavix for 3 weeks and statins, continued on his previous home medications without any changes, recommended follow-up with PCP in 1-2 week, follow-up with neurology in 3 to 4 weeks. - Physical Exam General: Alert, Oriented x3, Cooperative, No apparent distress. HEENT: Atraumatic, PERRLA, EOMI. Neck: Supple, No JVD, Negative Carotid Bruits, Trachea Midline, Thyroid Normal. Lungs: Clear to auscultation, Normal air movement, No rhonchi, No wheeze, No rales. Cardiovascular: Regular rate, Regular Rhythm, Normal S1, Normal S2, PMI Normal. Abdomen: Bowel Sounds Present, Soft, Non Tender, Non-Distended, No Hepato- splenomegaly. Extremities: No clubbing, No cyanosis, No edema Skin: No rashes, No breakdown Neurological: Normal power and tone of all limbs, cranial nerves are intact. Vital Signs are stable. This note was generated with [employer] dictation software. It may contain incorrect words, spelling, and punctuation that were not noted in checking the note before signing. - Physical Exam Vitals/I&O's: Vital Signs Temp Pulse Resp BP Pulse Ox 98.0 F 62 16 157/62 H 98 05/26/19 08:00 05/26/19 08:00 05/26/19 08:00 05/26/19 08:00 05/26/19 08:00 Oxygen Delivery Method Room Air Weight: 187 lb 6.392 oz Body Mass Index (BMI) 26.9 Finger Stick Blood Glucose 105 Intake and Output for Last 24 Hours 05/24/19 05/25/19 05/26/19 23:59 23:59 23:59 Intake Total 560 / 560 1450 / 1450 Balance 560 / 560 1450 / 1450 Laboratory Results 05/25/19 13:57: POC Glucose 105 05/25/19 14:01: WBC 7.3, RBC 5.50, Hgb 15.7, Hct 47.3, MCV 86.0, MCH 28.5, MCHC 33.2, RDW Std Deviation 39.5, RDW Coeff of Stefano 12.7, Plt Count 192, MPV 10.4, Immature Gran % (Auto) 0.300, Neut % (Auto) 61.6, Lymph % (Auto) 26.3, [place] % (Auto) 6.5, Eos % (Auto) 4.7, Baso % (Auto) 0.6, Absolute Neuts (auto) 4.5, Absolute Lymphs (auto) 1.91, Nucleated RBC % 0 05/25/19 14:01: PT 12.9, INR 1.0, APTT 27.5 05/25/19 14:01: Sodium 137, Potassium 4.8, Chloride 102, Carbon Dioxide 27.0, Anion Gap 8, BUN 15, Creatinine 1.43 H, Estim Creat Clear Calc 43.18, Est GFR (MDRD) Af Amer 62, Est GFR (MDRD) Non-Af 51 L, BUN/Creatinine Ratio 10.5, Glucose 113 H, Calcium 9.8, Troponin I < 0.015 05/25/19 16:42: POC Glucose 114 H 05/25/19 21:26: POC Glucose 103 05/26/19 05:55: Sodium 141, Potassium 4.2, Chloride 109 H, Carbon Dioxide 27.0, Anion Gap 5, BUN 17, Creatinine 1.49 H, Estim Creat Clear Calc 44.23, Est GFR (MDRD) Af Amer 59 L, Est GFR (MDRD) Non-Af 49 L, BUN/Creatinine Ratio 11.4, Glucose 104, Calcium 9.3, Triglycerides 109, Cholesterol 129, LDL Cholesterol 67, VLDL Cholesterol 22, HDL Cholesterol 40 05/26/19 05:55: Hemoglobin A1c 6.0 05/26/19 06:20: POC Glucose 100 05/26/19 10:58: POC Glucose 170 H Current Medications Acetaminophen (Tylenol) 650 mg PO Q6H PRN PRN PRN Reason: Pain Score 1-3/Temp > 100.7 F Aspirin (Aspirin, Baby) 81 mg PO DAILY@0800 COUNTS INCLUDE 234 BEDS AT [facility] Last Admin: 05/26/19 08:16 Dose: 81 mg Documented by: Atorvastatin Calcium (Lipitor) 40 mg PO QHS COUNTS INCLUDE 234 BEDS AT [facility] Clopidogrel Bisulfate (Plavix) 75 mg PO DAILY [facility]CLUDE 234 BEDS AT [facility] Stop: 06/16/19 10:01 Dextrose (D50w Syringe) 0 gm IV X1 PRN; Protocol PRN Reason: Hypoglycemia Enoxaparin Sodium (Lovenox) 40 mg SC DAILY@0600 COUNTS INCLUDE 234 BEDS AT [facility] Last Admin: 05/26/19 06:21 Dose: 40 mg Documented by: Glucagon () 1 mg IM .X1 PRN PRN Reason: Hypoglycemia Insulin Human Lispro (Humalog Kwikpen (Bkc)) 0 unit SC TIDAC COUNTS INCLUDE 234 BEDS AT [facility]; Protocol Last Admin: 05/26/19 11:06 Dose: Not Given Documented by: Metformin HCl (Glucophage Xr) 500 mg PO DAILYCM COUNTS INCLUDE 234 BEDS AT [facility] Last Admin: 05/26/19 08:14 Dose: Not Given Documented by: Ondansetron HCl (Zofran) 4 mg IV Q8H PRN PRN PRN Reason: NAUSEA/VOMITING Senna/Docusate Sodium (Senokot-S, Isabel-Colace) 2 tablet PO BID PRN PRN PRN Reason: Constipation Sodium Chloride () 10 - 40 ml IV UD PRN PRN Reason: SALINE FLUSH Last Admin: 05/25/19 16:46 Dose: 10 ml Documented by: Sodium Chloride () 10 - 40 ml IV UD PRN PRN Reason: SALINE FLUSH Tamsulosin HCl (Flomax) 0.4 mg PO DAILY@1730 COUNTS INCLUDE 234 BEDS AT THE [facility] Disposition: Home Minutes spent on discharge:: 28 Patient Condition:: Stable Meaningful Use Info Meaningful Use Diagnoses (Choose all that apply): None applicable Code Visit OBSV E&M: 06800 Observation care discharge
--- NOTE | 2019-05-26 13:45 | CASEMGMT ---
Completed a PHQ-9 with patient as he had a TIA. Patient scored a 0 which indicates no Depression. Alexa ARCEO MSW
== END 2019-05-26 11:19 | disposition home or self-care (01) ==
LOC: ED 14:37 → PCU 05-26 06:36
PROVIDERS: Emergency Provider Emergency Medicine; Family Provider Family Medicine; PCP Family Medicine; Visit Provider Hospitalist
DX: G45.9 Transient cerebral ischemic attack, unspecified (principal); N40.0 Benign prostatic hyperplasia without lower urinary tract symptoms; I10 Essential (primary) hypertension; E11.9 Type 2 diabetes mellitus without complications; R29.702 NIHSS score 2; E78.5 Hyperlipidemia, unspecified; I08.3 Combined rheumatic disorders of mitral, aortic and tricuspid valves; Z79.899 Other long term (current) drug therapy; Z79.84 Long term (current) use of oral hypoglycemic drugs
CPT/HCPCS: 36415; 70450; 70544; 70549; 70551; 71045; 80048; 80061; 82962; 83036; 84484; 85025; 85610; 85730; 93005; 93306; 94762; 96360; 96361; 96372; 97802; 99218; 99285; A9575; J7030; Q9957; A4216; G0378

== ENCOUNTER 2024-06-20 13:33 | Observation (INO) | payer MEDICARE, SELFPAY ==
[2024-06-20] VITALS (15 sets, daily range): BP systolic 140–160; BP diastolic 55–76; PULSE 60–88; RESP 14–20; TEMP 36.2–37.4; O2SAT 93–100; BMI 29.0; BMI 28.4
[2024-06-20 14:14] LABS: Absolute Neutrophil Count 9.1 X10^3/uL (2.0-7.7); Basophil# 0.07 X10^3/uL; Basophil% 0.6 % (0-1); Eosinophil# 0.48 X10^3/uL; Eosinophils% 3.8 % (0-5); Hematocrit 35.9 % (40-54); Hemoglobin 11.9 g/dL (13.0-16.5); Lymphocyte % 12.8 % (19-41); Mean Corp Hgb Conc 33.1 g/dL (32-36); Mean Corpuscular Hgb 28.3 pg (27.0-32.0); Mean Corpuscular Volume 85.3 fL (80-94); Mean Platelet Vol. 10.4 fl (6.2-12.0); Monocyte# 1.08 X10^3/uL; Monocyte% 8.6 % (0-10); NRBC Flagged by Analyzer 0 % (0-5); Neutrophil # 9.13 X10^3/uL (2.7-7.7); Neutrophil % 73.1 % (47-70); Platelet Count 244 K/mm3 (150-450); RBC Distribution Width CV 13.2 % (11.6-14.6); RBC Distribution Width SD 40.4 fl (35.1-43.9); Red Blood Count 4.21 M/mm3 (4.6-6.2); White Blood Count 12.5 K/mm3 (4.4-11.0)
[2024-06-20 14:28] LABS: Anion Gap 3 (5-15); BUN 37 mg/dL (7-18); BUN/Creat Ratio 20.4 RATIO (10-20); Chloride 110 mmol/L (98-107); Creatinine, Serum 1.81 mg/dL (0.70-1.30); EST Glomerular Filtration Rate 38 mL/min (>60); Est Glom Filt Rate - Afr Amer 47 mL/min (>60); Glucose 160 mg/dL (74-106); Potassium 5.4 mmol/L (3.5-5.1); Sodium Level 139 mmol/L (136-145)
--- NOTE | 2024-06-20 15:34 | CT_ITS ---
EXAM: CT ABDOMEN AND PELVIS WITHOUT INTRAVENOUS CONTRAST CLINICAL INDICATION: perirectal abscess TECHNIQUE: Helically acquired images were obtained of the abdomen and pelvis without intravenous contrast. This CT exam was performed using one or more of the following dose reduction techniques: automated exposure control, adjustment of the mA and/or kV according to patient size, and/or use of iterative reconstruction technique. COMPARISON: No relevant prior studies available. FINDINGS: LOWER THORAX: There is moderate coronary artery calcification. Lung bases are clear. No cardiomegaly. No significant pericardial effusion. ABDOMEN: LIVER: Unremarkable. Homogeneous. GALLBLADDER AND BILE DUCTS: Unremarkable. No calcified gallstones. No gallbladder distention or wall edema. No intra- or extrahepatic biliary ductal dilation. PANCREAS: Unremarkable. No focal cystic mass. SPLEEN: Unremarkable. Normal size without focal cystic or solid mass. ADRENALS: Unremarkable. No nodules. KIDNEYS AND URETERS: There is a hyperdense cyst in the lateral aspect of the left kidney that measures 2.1 x 1.5 cm which may represent hemorrhagic cyst. Further evaluation with ultrasound is recommended. There are bilateral nonobstructing calyceal stones. Normal renal size and position. STOMACH AND BOWEL: There is sigmoid diverticulosis with no evidence of diverticulitis. No stomach or bowel distention. PELVIS: APPENDIX: No evidence of acute appendicitis. BLADDER: Unremarkable. REPRODUCTIVE: Unremarkable as visualized. No mass. ABDOMEN and PELVIS: INTRAPERITONEAL SPACE: Unremarkable. No ascites or other fluid collection. No free air. BONES/JOINTS: Unremarkable. No suspicious lytic or blastic abnormality. SOFT TISSUES: There is a 9.0 x 3.5 x 4.9 cm low-density collection in the perineum inferior to the rectum which may represent a perirectal abscess. No discrete abdominal or pelvic wall hernia. VASCULATURE: See above. LYMPH NODES: Unremarkable. No enlarged lymph nodes. CT/Abdomen/Pelvis without Cont IMPRESSION: 1. Low-density collection inferior to the rectum extending into the perineum suspicious for perirectal abscess. 2. Hyperdense mass in the lateral aspect left kidney which may represent hemorrhagic cyst. Further evaluation with ultrasound may be beneficial. Electronically Signed: Jm Carlos MD at 16:10 EST ,
[2024-06-20] MEDS: 0.9% Normal Saline (1000mL) 1,000 ML 150 ML IV (15:35)
--- NOTE | 2024-06-20 15:52 | EDS_ITS ---
HPI History of Present Illness Chief Complaint: Abscess Informant: patient and spouse/S.O. Narrative Narrative: Patient is an 78-year-old male presenting from Dr. Crowder's office for concern of perirectal abscess. Patient states in October he had swelling of his scrotum. He states he was swollen from his butt hole to his nut sack. He states he was created with a course of antibiotics and got better. He notes for the past week he has noted having pain in his perineal region today. He notes now he is having a lot of pain when he sits. He denies any pain with defecation or urination. Denies any fever, chills, nausea or vomiting. Denies any associate abdominal pain. Denies any generalized weakness. He saw Dr. Crowder today who was concerned this is more of a perirectal abscess. He spoke with Dr. Robison on the phone b who ut recommended the patient come to the ER for further evaluation CT imaging. Patient states he is comfortable at this time as he is not sitting up. Is not on any blood thinners. Does take 81 mg aspirin daily. No other complaints or concerns reported at this time [facility] Medical History (Updated 06/20/24 @ 18:[address] Frida Marcos, DO) Neuropathy CKD (chronic kidney disease) stage 3, GFR 30-59 ml/min Hyperlipidemia Gout Essential hypertension Type 2 diabetes mellitus without complication BPH (benign prostatic hyperplasia) TIA (transient ischemic attack) (~04/2019) Home Medications ?Medication ?Instructions ?Recorded ?Last Taken ?Type tamsulosin 0.4 mg capsule 0.4 mg PO DAILY urinary 05/25/19 05/25/19 History aspirin 81 mg chewable tablet 81 mg PO DAILY@0800 05/26/19 Unknown Rx simvastatin 40 mg tablet 40 mg PO DAILY #30 tabs 05/26/19 Unknown Rx dapagliflozin propanediol 10 mg 10 mg PO DAILY 06/20/19 Unknown History tablet (Farxiga) indomethacin 50 mg capsule 50 mg PO DAILY PRN gout 06/20/19 Unknown History metformin 500 mg tablet,extended 2,000 mg PO DAILY dm 06/20/19 Unknown History release 24 hr omega-3 fatty acids 500 mg capsule 500 mg PO .COMPLEX 06/20/19 Unknown History amlodipine 5 mg-benazepril 10 mg 1 cap PO DAILY 06/20/24 Unknown History capsule carvedilol 6.25 mg tablet 6.25 mg PO BIDCM Blood Pressure 06/20/24 Unknown History clopidogrel 75 mg tablet 75 mg PO DAILY 06/20/24 Unknown History Allergy/AdvReac Type Severity Reaction Status Date / Time Penicillins Allergy Intermediate Unknown Verified 06/20/24 13:37 pioglitazone Allergy Intermediate Rash Verified 06/20/24 13:37 Family History Father Heart disease Myocardial infarction Mother Cancer leukemia Surgical History History of colonoscopy with polypectomy (~2015) History of prostate biopsy (~2012) Social History Smoking Status: Never smoker alcohol intake: never substance use type: does not use caffeine: Yes Type: coffee Number of servings: 2 ROS ROS ED Constitutional Constitutional ED: Denies chills or fever(s) Cardiovascular Cardiovascular: Denies chest pain Respiratory/Chest Respiratory/Chest: Denies cough Gastrointestinal Gastrointestinal: Denies abdominal pain, constipation, diarrhea, nausea or vomiting Genitourinary Genitourinary ED: Reports other Details: Scrotal pain and swelling. Perineal pain. Denies any associated drainage. ; Denies dysuria, hematuria or urinary frequency Musculoskeletal Musculoskeletal: Denies arthralgias, back pain or myalgias Integumentary Reports rash Neurologic Neurologic: Denies headache(s) or weakness Hematologic/Lymphatic Hematologic/Lymphatic: Denies easy bleeding or easy bruising EXAM Physical Exam Const Vital Signs: 06/20/24 13:35 06/20/24 15:34 06/20/24 17:00 Temperature 97.9 F 97.9 F Temperature Source Temporal Temporal Pulse Rate 60 88 75 Respiratory Rate 16 16 18 Blood Pressure 142/58 H 148/61 H Blood Pressure Mean 86 90 Pulse Ox 97 98 97 Oxygen Delivery Method Room Air Room Air 06/20/24 17:43 Temperature 98.5 F Temperature Source Pulse Rate 85 Respiratory Rate 18 Blood Pressure 154/68 H Blood Pressure Mean 96 Pulse Ox 97 Oxygen Delivery Method Positive well nourished and well developed General Appearance ED: well developed and NAD HEENT Reports moist mucous membranes Neck supple Chest Wall inspection of chest normal and palpation of chest normal Resp normal respiratory effort and clear to auscultation bilaterally Cardio regular rate and regular rhythm GI normal to inspection, nondistended, normoactive bowel sounds, non-tender and non-distended Narrative: Normal external genitalia. Patient has swelling and induration of the perineum extending to the perirectal area. There is associated erythema, induration and some mild fluctuance throughout this area. There is firmness noted on digital rectal exam at the 6:00 area. There is only minimal tenderness on exam. No crepitus appreciated. Extremity normal to inspection General Extremety ED: Negative for edema General Extremity: Negative for edema Neuro oriented x3 Sensorium / Orientation: alert Motor Exam: Negative for general weakness Psych mental status grossly normal Skin Skin Narrative: Erythema, induration and fluctuance of the perineum. No drainage appreciated. MDM MDM MDM Narrative Medical decision making narrative: Patient is evaluated for perineal redness, pain and concern for abscess in that area. Differential includes perirectal abscess, Arelis's gangrene, perianal abscess and cellulitis. Workup including CBC, lactate, BMP, blood cultures and CT of the abdomen and pelvis is obtained. Patient does have a mild leukocytosis of 12.5 with a left shift. Potassium mildly elevated 5.4 which is pretty nonspecific. EKG is obtained not consistent with hyperkalemia. Repeat potassium is 5.1. Suspect it was hemolyzed. Patient does have an elevation of his creatinine of 1.81 which is above what he was 5 years ago (1.4). Unclear if this is his baseline or acute. CT does show a collection inferior to the rectum extending to the perineum suspicious for perirectal abscess. Case discussed with general surgery, Dr. Castillo. Patient started on cefepime and Flagyl in the emergency room. Decision made to take patient to the OR and then IV antibiotics and further management. He is given gentle IV fluids. Discussed case with hospitalist as well as they will be on consult. Lab Data Attestation: I reviewed the patient's lab results. Labs: Laboratory Results - last 24 hr 06/20/24 06/20/24 06/20/24 14:04 15:32 17:55 WBC 12.5 H RBC 4.21 L Hgb 11.9 L Hct 35.9 L MCV 85.3 MCH 28.3 MCHC 33.1 RDW Std Deviation 40.4 RDW Coeff of Stefano 13.2 Plt Count 244 MPV 10.4 Immature Gran % (Auto) 1.100 H Neut % (Auto) 73.1 H Lymph % (Auto) 12.8 L [place] % (Auto) 8.6 Eos % (Auto) 3.8 Baso % (Auto) 0.6 Absolute Neuts (auto) 9.1 H Absolute Lymphs (auto) 1.60 Nucleated RBC % 0 Sodium 139 Potassium 5.4 H 5.1 Chloride 110 H Carbon Dioxide 26.0 Anion Gap 3 L BUN 37 H Creatinine 1.81 H Estim Creat Clear Calc 36.00 Est GFR (MDRD) Af Amer 47 L Est GFR (MDRD) Non-Af 38 L BUN/Creatinine Ratio 20.4 H Glucose 160 H Lactic Acid 1.0 Calcium 9.0 Radiography Diagnostic Testing: Clinical Impression(s) from Imaging Studies Abdomen/Pelvis CT 06/20/24 15:34 IMPRESSION: 1. Low-density collection inferior to the rectum extending into the perineum suspicious for perirectal abscess. 2. Hyperdense mass in the lateral aspect left kidney which may represent hemorrhagic cyst. Further evaluation with ultrasound may be beneficial. Electronically Signed: Jm Carlos MD at 16:10 EST , Rhythm Strip Rhythm Strip: Sinus Rhythm Rate: 71 Ectopy: None EKG Initial EKG: Attestation: I personally reviewed and interpreted this EKG as follows: Interpretation: Sinus Rhythm Comments: Normal sinus rhythm at a rate of 71 bpm with first-degree AV block TN interval 214 Left axis deviation Normal voltage criteria for LVH Normal ST segments Management Discussion w/another healthcare provider: Hospitalist and Electric Meter Tester Discharge Plan Dx/Rx/DC Orders Clinical Impression: Perineal abscess, CKD (chronic kidney disease) stage 3, GFR 30-59 ml/min, Leukocytosis, Diabetes mellitus Disposition Disposition: Acute Care Hospital [facility] Discharge Date/Time: 06/20/24 18:45
[2024-06-20] MEDS: Cefepime HCl 1 GM in 0.9% Normal Saline (50mL MB+) 50 ML IV (16:47)
[2024-06-20] MEDS: metroNIDAZOLE 500 MG/100 ML BAG 100 MG IV (17:49)
--- NOTE | 2024-06-20 17:52 | PCM.HP.STD ---
HPI - General General Date of Service: 06/20/24 Chief Complaint: Perineal pain HPI Narrative MACARIO COWART, is a 78 M who presents to [facility] ER on direction from Dr. Reyez after he saw Dr. Crowder earlier today for concern for possible scrotal abscess. He shares that for roughly the last week he has had discomfort?particularly with sitting. He denies any fevers or chills. He has not experienced any drainage. He does note that he had a similar infection in October and saw urology but was simply managed with antibiotics and the area of concern was clear within 10 days. He does distinguish that this former issue was not associated with near the pain that he has had with the current issue. Patient's ER workup was notable for mild leukocytosis of 12.5. CT imaging was performed without contrast given patient's creatinine of 1.8 but showed evidence of a 9.0 x 3.5 x 4.9 cm area that was concerning for a possible perirectal abscess. Beyond the above immediate issues, patient is a relatively healthy 78-year-old with diagnoses of diabetes mellitus managed with metformin, CKD, hypertension, and gout. [facility] Medical History (Updated 06/20/24 @ 18:[address] Tray Castillo MD) Neuropathy CKD (chronic kidney disease) stage 3, GFR 30-59 ml/min Hyperlipidemia Gout Essential hypertension Type 2 diabetes mellitus without complication BPH (benign prostatic hyperplasia) TIA (transient ischemic attack) (~04/2019) Home Medications ?Medication ?Instructions ?Recorded ?Last Taken ?Type tamsulosin 0.4 mg capsule 0.4 mg PO DAILY urinary 05/25/19 05/25/19 History aspirin 81 mg chewable tablet 81 mg PO DAILY@0800 05/26/19 Unknown Rx simvastatin 40 mg tablet 40 mg PO DAILY #30 tabs 05/26/19 Unknown Rx dapagliflozin propanediol 10 mg 10 mg PO DAILY 06/20/19 Unknown History tablet (Farxiga) indomethacin 50 mg capsule 50 mg PO DAILY PRN gout 06/20/19 Unknown History metformin 500 mg tablet,extended 2,000 mg PO DAILY dm 06/20/19 Unknown History release 24 hr omega-3 fatty acids 500 mg capsule 500 mg PO .COMPLEX 06/20/19 Unknown History carvedilol 6.25 mg tablet See Rx Instructions .Route 07/08/21 Unknown Rx .COMPLEX #180 tabs amlodipine 5 mg-benazepril 10 mg 1 cap PO DAILY 06/20/24 Unknown History capsule clopidogrel 75 mg tablet 75 mg PO DAILY 06/20/24 Unknown History Allergy/AdvReac Type Severity Reaction Status Date / Time Penicillins Allergy Intermediate Unknown Verified 06/20/24 13:37 pioglitazone Allergy Intermediate Rash Verified 06/20/24 13:37 Family History Father Heart disease Myocardial infarction Mother Cancer leukemia Surgical History History of colonoscopy with polypectomy (~2015) History of prostate biopsy (~2012) Social History Smoking Status: Never smoker alcohol intake: never substance use type: does not use caffeine: Yes Type: coffee Number of servings: 2 Vital Signs Vital Signs Vital Signs: 06/20/24 13:35 06/20/24 15:34 06/20/24 17:00 Temperature 97.9 F 97.9 F Temperature Source Temporal Temporal Pulse Rate 60 88 75 Respiratory Rate 16 16 18 Blood Pressure 142/58 H 148/61 H Blood Pressure Mean 86 90 Pulse Ox 97 98 97 Oxygen Delivery Method Room Air Room Air 06/20/24 17:43 Temperature 98.5 F Temperature Source Pulse Rate 85 Respiratory Rate 18 Blood Pressure 154/68 H Blood Pressure Mean 96 Pulse Ox 97 Oxygen Delivery Method Weight Weight: 197 lb 1.6 oz Body Mass Index (BMI) 29.0 Physical Exam Const alert, oriented x3, no apparent distress and well nourished General Appearance: cooperative Skin Skin Narrative: Erythematous, indurated, and moderately fluctuant area of the perineum bordering the anterior aspect of the anal canal that is blanchable with palpation. Patient also describes some discomfort with palpation. I am unable to elicit any drainage. Results Lab / Micro Data 06/20/24 14:04 06/20/24 14:04 Labs: Laboratory Results - last 24 hr 06/20/24 14:04: WBC 12.5 H, RBC 4.21 L, Hgb 11.9 L, Hct 35.9 L, MCV 85.3, MCH 28.3, MCHC 33.1, RDW Std Deviation 40.4, RDW Coeff of Stefano 13.2, Plt Count 244, MPV 10.4, Immature Gran % (Auto) 1.100 H, Neut % (Auto) 73.1 H, Lymph % (Auto) 12.8 L, [place] % (Auto) 8.6, Eos % (Auto) 3.8, Baso % (Auto) 0.6, Absolute Neuts (auto) 9.1 H, Absolute Lymphs (auto) 1.60, Nucleated RBC % 0, Sodium 139, Potassium 5.4 H, Chloride 110 H, Carbon Dioxide 26.0, Anion Gap 3 L, BUN 37 H, Creatinine 1.81 H, Estim Creat Clear Calc 36.00, Est GFR (MDRD) Af Amer 47 L, Est GFR (MDRD) Non-Af 38 L, BUN/Creatinine Ratio 20.4 H, Glucose 160 H, Calcium 9.0 06/20/24 15:32: Lactic Acid 1.0 Imaging Radiology Impression Abdomen/Pelvis CT 06/20/24 15:34 IMPRESSION: 1. Low-density collection inferior to the rectum extending into the perineum suspicious for perirectal abscess. 2. Hyperdense mass in the lateral aspect left kidney which may represent hemorrhagic cyst. Further evaluation with ultrasound may be beneficial. Electronically Signed: Jm Carlos MD at 16:10 EST , Assessment & Plan Assessment/Plan (1) Perineal abscess: PLAN: Patient is an 78-year-old diabetic male who presents with 1 week of progressive perineal discomfort and ER workup is consistent with a perineal/perirectal abscess. On exam the area seems to be much fluctuant in the perineum but does seem to arise more from the rectum than the scrotum. There is no spontaneous drainage. Given patient's diabetes and mild leukocytosis I favor proceeding sooner than later with incision and drainage and given the location of this abscess I believe he would be most comfortable in an operative setting. This impression was shared with patient and his family and they are in agreement. I then notified both the operating room staff and anesthesia and patient will be taken down shortly to be further evaluated and optimized by anesthesia for the procedure. Anticipate some postoperative wound care with packing will be required. Will also plan to consult hospitalist service given apparent MAGDALENO on CKD with hyperkalemia. Tray Castillo MD General Surgery Endocrine Surgery Pager: [facility] [address] [place] [address], [address] [place] [id number] Office: [phone] Charges/Coding Visit Charges Inpatient E&M: 29987 Init Hosp L2
--- NOTE | 2024-06-20 18:06 | CON.PCM.HO_ITS ---
Assessment & Plan Assessment/Plan (1) Perineal abscess: PLAN: Plan The patient is an 78 y/o M w/ PMHx: CKD stage III unclear subtype, HTN, HLD, BPH without obstructive phatology, Diabetes mellitus type II with chronic neuropathy, Hx TIA, Gout who presents to the [facility] ED on 06/20/24 from his Urologist office secondary to evaluation with evidence of perianal abscess with need for evaluation with discussions with the ED physician and General surgeon Dr. Reyez with recent history of 1 week of perineal discomfort and pain worse when he sits in a specific way with no pain with defecation nor any recent fevers or chills nor nausea or emesis or abdominal pain but given concerns prompted evaluation by urology today who is more concerned actually about perirectal abscess and discussed his case as noted with surgery and prompted referral to the ED for evaluation. #1. Acute perirectal abscess: Admitted per general surgery, administered IV cefepime and Flagyl in the ED, continue antibiotic therapy per surgery discretion, NPO, antiemetics as needed, pain regimen as needed, plan transition from ED to OR, EKG with sinus rhythm with no acute evidence of ischemia, per discussion with patient and family underlying comorbidities well-controlled, will temporally hold Plavix, continue aspirin, resume Plavix once amenable per surgery. #2. Incidentally noted hyperdense mass in the lateral aspect of the left kidney: CT abdomen and pelvis with noted hyperdense mass in the lateral aspect of the left kidney, possibly hemorrhagic cyst, will need follow-up outpatient renal ultrasound. #3. Hyperkalemia, mild: Admission potassium very mildly elevated 5.4, will hydrate and repeat level. #4. Normocytic anemia, unclear chronicity: Admission hemoglobin 11.9, MCV 85.3, unfortunately no recent labs with last noted 2019 hemoglobin 15.7 at that time this certainly could be chronic but unclear, will continue to trend CBC to further elucidate. #5. Acutely Elevated Creatinine/Acute Renal Insufficiency on Chronic Kidney Disease Stage III per previous record however last labs remotely from 2019 the certainly could be progressed renal disease: Admission BUN/Cr 37/1.82, GFR 38, baseline renal function previously had been notable for creatinine 1.4 range and GFR 40-50 range, repeat BMP in AM. #6. History CVA: Patient denies any deficits from previous stroke. As long as surgery is amenable will continue aspirin, temporally hold Plavix with resumption once able, continue hypertensive regimen, continue statin therapy, temporally hold oral diabetic regimen with alteration of treatment as noted, continue statin therapy. #7. Diabetes mellitus type II with chronic neuropathy: Hold oral home regimen, currently n.p.o. for planned surgery but would transition to ADA diet once appropriate follow, accu checks w/ ISS. #8. Hypertension: Continue home regimen including Coreg, amlodipine, benazepril with hold parameters as needed, PRN hydralazine. #9. Hyperlipidemia: We will continue patient on statin therapy. #10. BPH without obstructive pathology: We will continue patient on Flomax regimen. #11. DVT prophylaxis: Recommend SCDs, chemoprophylaxis per surgery discretion given possible intervention needs as noted. #12. CODE status: Patient HCPOA is patient spouse was present as well as his children who are secondary and living will is currently in place. Discussed CODE status at length including difference between FULL code, DNR-CCA and DNR-CC status. Following discussions about the differences in these status, requested Full Code status. Advanced Care Planning Face to Face Time: 16 minutes. HPI Consult Data Date of Consult: 06/20/24 HPI Narrative HPI Narrative: The patient is an 78 y/o M w/ PMHx: CKD stage III unclear subtype, HTN, HLD, BPH without obstructive phatology, Diabetes mellitus type II with chronic neuropathy, Hx TIA, Gout who presents to the [facility] ED on 06/20/24 from his Urologist office secondary to evaluation with evidence of perianal abscess with need for evaluation with discussions with the ED physician and General surgeon Dr. Reyez with recent history of 1 week of perineal discomfort and pain worse when he sits in a specific way with no pain with defecation nor any recent fevers or chills nor nausea or emesis or abdominal pain but given concerns prompted evaluation by urology today who is more concerned actually about perirectal abscess and discussed his case as noted with surgery and prompted referral to the ED for evaluation. He notes he had a similar presentation back in October with a swelling of his scrotum at that point it extended also to his anus and he was treated at that time with 10-day course of antibiotics and improved completely. Upon current evaluation he denies any overt pain and notes it is very positional only. Workup in the ED included T97.9, heart rate 60, BP 142/58, respiratory rate 16, 97% on room air, CBC with WBC 12.5, hemoglobin 0.9, MCV 85.3, platelet 244 with left shift, BMP with potassium 5.4, chloride 110, BUN/creatinine 37/1.81, GFR 38, glucose 160, lactic acid 1.0, CT abdomen and pelvis with low-density collection inferior to the rectum extending into the perineum suspicious for perirectal abscess, hyperdense mass in the lateral aspect of the left kidney possibly hemorrhagic cyst, blood culture x 2 pending per ED. in the ED patient administered Flagyl 500 mg IV x 1 as well as cefepime 1 g IV x 1 in addition to maintenance IV fluids. [facility] Medical History Neuropathy CKD (chronic kidney disease) stage 3, GFR 30-59 ml/min Hyperlipidemia Gout Essential hypertension Type 2 diabetes mellitus without complication BPH (benign prostatic hyperplasia) TIA (transient ischemic attack) (~04/2019) Home Medications ?Medication ?Instructions ?Recorded ?Last Taken ?Type tamsulosin 0.4 mg capsule 0.4 mg PO DAILY urinary 05/25/19 05/25/19 History aspirin 81 mg chewable tablet 81 mg PO DAILY@0800 05/26/19 Unknown Rx simvastatin 40 mg tablet 40 mg PO DAILY #30 tabs 05/26/19 Unknown Rx dapagliflozin propanediol 10 mg 10 mg PO DAILY 06/20/19 Unknown History tablet (Farxiga) indomethacin 50 mg capsule 50 mg PO DAILY PRN gout 06/20/19 Unknown History metformin 500 mg tablet,extended 2,000 mg PO DAILY dm 06/20/19 Unknown History release 24 hr omega-3 fatty acids 500 mg capsule 500 mg PO .COMPLEX 06/20/19 Unknown History carvedilol 6.25 mg tablet See Rx Instructions .Route 07/08/21 Unknown Rx .COMPLEX #180 tabs amlodipine 5 mg-benazepril 10 mg 1 cap PO DAILY 06/20/24 Unknown History capsule clopidogrel 75 mg tablet 75 mg PO DAILY 06/20/24 Unknown History Allergy/AdvReac Type Severity Reaction Status Date / Time Penicillins Allergy Intermediate Unknown Verified 06/20/24 13:37 pioglitazone Allergy Intermediate Rash Verified 06/20/24 13:37 Family History Father Heart disease Myocardial infarction Mother Cancer leukemia Surgical History History of colonoscopy with polypectomy (~2015) History of prostate biopsy (~2012) Social History Smoking Status: Never smoker alcohol intake: never substance use type: does not use caffeine: Yes Type: coffee Number of servings: 2 ROS ROS Narrative Admission Review of Systems: CONSTITUTIONAL: No weight loss, fever, chills, + weakness or fatigue. HEENT: Eyes: No visual loss, blurred vision, double vision or yellow sclerae. Ears, Nose, Throat: No hearing loss, sneezing, congestion, runny nose or sore throat. SKIN: No rash or itching, lesions, wounds. CARDIOVASCULAR: No chest pain, chest pressure or chest discomfort, palpitations, edema, orthopnea, syncopal events. RESPIRATORY: No shortness of breath, cough or sputum, wheezing, hemoptysis. GASTROINTESTINAL: No anorexia, nausea, vomiting or diarrhea, abdominal pain, melena, BRBPR. GENITOURINARY: No dysuria, frequency, urgency or retention. + Perineal discomfort, positional, swelling. NEUROLOGICAL: + History CVA with no residual deficits per patient report. No headache, dizziness, syncope, paralysis, ataxia, numbness or tingling in the extremities, focal weakness, change in bowel or bladder control, seizure. MUSCULOSKELETAL: + muscle, back pain, joint pain or stiffness. HEMATOLOGIC: + Chronic anemia, easy bleeding/bruising. LYMPHATICS: No enlarged nodes. No history of splenectomy. PSYCHIATRIC: No history of depression or anxiety. ENDOCRINOLOGIC: No reports of sweating, cold or heat intolerance. No polyuria or polydipsia. ALLERGIES: + Patient reports history of hives with penicillin. Physical Exam Narrative Physical Examination: General: Awake, alert, oriented x 3 and cooperative, seated upright in the ED bed, denies any current pain or discomfort, awaiting transition to the OR. Skin: Normal color, normal turgor, no icterus, no cyanosis except ED noted swelling/induration the perineum extending to the perirectal area with associated erythema and mild fluctuance. HEENT: AT/NC, EOMI, PERRLA, mildly dry MM, no carotid bruits or JVD noted. Lungs: Mildly diminished, greater bases, appropriate effort, no rales, ronchi or wheezing. Heart: Regular rate and rhythm; no gallop, rub audible. Abdomen: Soft, overweight, NTTP, ND, mildly hyperactive BS, no appreciated HSM. Extremities: No cyanosis, clubbing, mild bilateral ankle left greater than right edema, notes chronic. Neurological: Patient awake, alert, oriented as noted, cognitive function intact; pupils equally reactive to light and accommodation, cranial nerves grossly normal, moving all 4 extremities, no focal deficits, strength mildly to moderately globally decree secondary to acute presentation Psychiatric: Affect appears fatigued otherwise normal, no acute evidence of depressive or anxiety feelings. Lab / Micro Data 06/20/24 14:04 06/20/24 17:55 Labs: Laboratory Results - last 24 hr 06/20/24 14:04: WBC 12.5 H, RBC 4.21 L, Hgb 11.9 L, Hct 35.9 L, MCV 85.3, MCH 28.3, MCHC 33.1, RDW Std Deviation 40.4, RDW Coeff of Stefano 13.2, Plt Count 244, MPV 10.4, Immature Gran % (Auto) 1.100 H, Neut % (Auto) 73.1 H, Lymph % (Auto) 12.8 L, [place] % (Auto) 8.6, Eos % (Auto) 3.8, Baso % (Auto) 0.6, Absolute Neuts (auto) 9.1 H, Absolute Lymphs (auto) 1.60, Nucleated RBC % 0, Sodium 139, P otassium 5.4 H, Chloride 110 H, Carbon Dioxide 26.0, Anion Gap 3 L, BUN 37 H, C reatinine 1.81 H, Estim Creat Clear Calc 36.00, Est GFR (MDRD) Af Amer 47 L, Est GFR (MDRD) Non-Af 38 L, BUN/Creatinine Ratio 20.4 H, Glucose 160 H, Calcium 9.0 06/20/24 15:32: Lactic Acid 1.0 Imaging Radiology Impression Abdomen/Pelvis CT 06/20/24 15:34 IMPRESSION: 1. Low-density collection inferior to the rectum extending into the perineum suspicious for perirectal abscess. 2. Hyperdense mass in the lateral aspect left kidney which may represent hemorrhagic cyst. Further evaluation with ultrasound may be beneficial. Electronically Signed: Jm Carlos MD at 16:10 EST , Charges/Coding Procedures Hospitalists Procedures: 96632 Advncd Care Plan 30 Min Multi Select Codes Visit Charges Office Visit/Consults: 20165 IP Consult L3
--- NOTE | 2024-06-20 18:06 | HP.PCM.HOS_ITS ---
HPI - General HPI Narrative The patient is an 78 y/o M w/ PMHx: CKD stage III unclear subtype, HTN, HLD, BPH without obstructive phatology, Diabetes mellitus type II with chronic neuropathy, Hx TIA, Gout who presents to the [facility] ED on 06/20/24 from his Urologist office secondary to evaluation with evidence of perianal abscess with need for evaluation with discussions with the ED physician and General surgeon Dr. Reyez with recent history of Workup in the ED included T97.9, heart rate 60, BP 142/58, respiratory rate 16, 97% on room air, CBC with WBC 12.5, hemoglobin 0.9, MCV 85.3, platelet 244 with left shift, BMP with potassium 5.4, chloride 110, BUN/creatinine 37/1.81, GFR 38, glucose 160, lactic acid [], CT abdomen and pelvis [], blood culture x 2 pending per ED. Acute Perianal abscess: Admitted per general surgery, maintained on IV [] given unclear allergy listed to penicillin, NPO, antiemetics as needed, pain regimen as needed, Hyperkalemia, mild: Admission potassium very mildly elevated 5.4, will hydrate and repeat level. Normocytic anemia, unclear chronicity: Admission hemoglobin 11.9, MCV 85.3, unfortunately no recent labs with last noted 2019 hemoglobin 15.7 at that time this certainly could be chronic but unclear, will continue to trend CBC to further elucidate. Acutely Elevated Creatinine/Acute Renal Insufficiency on Chronic Kidney Disease Stage III per previous record however last labs remotely from 2019 the certainly could be progressed renal disease: Admission BUN/Cr 37/1.82, GFR 38, baseline renal function previously had been notable for creatinine 1.4 range and GFR 40- 50 range, repeat BMP in AM. Diabetes mellitus type II with chronic neuropathy: Hold oral home regimen, diet per surgery discretion given acute admission as noted above, accu checks w/ ISS. Hypertension: Continue home regimen including Coreg, lisinopril with hold parameters as needed, PRN hydralazine. Hyperlipidemia: We will continue patient on statin therapy. BPH without obstructive pathology: We will continue patient on Flomax regimen. DVT prophylaxis: SCDs, chemoprophylaxis per surgery discretion given possible intervention needs as noted. PENDING SALE TO [facility] Medical History Neuropathy CKD (chronic kidney disease) stage 3, GFR 30-59 ml/min Hyperlipidemia Gout Essential hypertension Type 2 diabetes mellitus without complication BPH (benign prostatic hyperplasia) TIA (transient ischemic attack) (~04/2019) Home Medications ?Medication ?Instructions ?Recorded ?Last Taken ?Type tamsulosin 0.4 mg capsule 0.4 mg PO DAILY urinary 05/25/19 05/25/19 History aspirin 81 mg chewable tablet 81 mg PO DAILY@0800 05/26/19 Unknown Rx simvastatin 40 mg tablet 40 mg PO DAILY #30 tabs 05/26/19 Unknown Rx dapagliflozin propanediol 10 mg 10 mg PO DAILY 06/20/19 Unknown History tablet (Farxiga) indomethacin 50 mg capsule 50 mg PO DAILY PRN gout 06/20/19 Unknown History metformin 500 mg tablet,extended 2,000 mg PO DAILY dm 06/20/19 Unknown History release 24 hr omega-3 fatty acids 500 mg capsule 500 mg PO .COMPLEX 06/20/19 Unknown History carvedilol 6.25 mg tablet See Rx Instructions .Route 07/08/21 Unknown Rx .COMPLEX #180 tabs amlodipine 5 mg-benazepril 10 mg 1 cap PO DAILY 06/20/24 Unknown History capsule clopidogrel 75 mg tablet 75 mg PO DAILY 06/20/24 Unknown History Allergy/AdvReac Type Severity Reaction Status Date / Time Penicillins Allergy Intermediate Unknown Verified 06/20/24 13:37 pioglitazone Allergy Intermediate Rash Verified 06/20/24 13:37 Family History Father Heart disease Myocardial infarction Mother Cancer leukemia Surgical History History of colonoscopy with polypectomy (~2015) History of prostate biopsy (~2012) Social History Smoking Status: Never smoker alcohol intake: never substance use type: does not use caffeine: Yes Type: coffee Number of servings: 2 Vital Signs Vital Signs Vital Signs: 06/20/24 13:35 06/20/24 15:34 06/20/24 17:00 Temperature 97.9 F 97.9 F Temperature Source Temporal Temporal Pulse Rate 60 88 75 Respiratory Rate 16 16 18 Blood Pressure 142/58 H 148/61 H Blood Pressure Mean 86 90 Pulse Ox 97 98 97 Oxygen Delivery Method Room Air Room Air 06/20/24 17:43 Temperature 98.5 F Temperature Source Pulse Rate 85 Respiratory Rate 18 Blood Pressure 154/68 H Blood Pressure Mean 96 Pulse Ox 97 Oxygen Delivery Method Weight Weight: 197 lb 1.6 oz Body Mass Index (BMI) 29.0 Results Lab / Micro Data 06/20/24 14:04 06/20/24 14:04 Labs: Laboratory Results - last 24 hr 06/20/24 14:04: WBC 12.5 H, RBC 4.21 L, Hgb 11.9 L, Hct 35.9 L, MCV 85.3, MCH 28.3, MCHC 33.1, RDW Std Deviation 40.4, RDW Coeff of Stefano 13.2, Plt Count 244, MPV 10.4, Immature Gran % (Auto) 1.100 H, Neut % (Auto) 73.1 H, Lymph % (Auto) 12.8 L, [place] % (Auto) 8.6, Eos % (Auto) 3.8, Baso % (Auto) 0.6, Absolute Neuts (auto) 9.1 H, Absolute Lymphs (auto) 1.60, Nucleated RBC % 0, Sodium 139, P otassium 5.4 H, Chloride 110 H, Carbon Dioxide 26.0, Anion Gap 3 L, BUN 37 H, C reatinine 1.81 H, Estim Creat Clear Calc 36.00, Est GFR (MDRD) Af Amer 47 L, Est GFR (MDRD) Non-Af 38 L, BUN/Creatinine Ratio 20.4 H, Glucose 160 H, Calcium 9.0 06/20/24 15:32: Lactic Acid 1.0 Imaging Radiology Impression Abdomen/Pelvis CT 06/20/24 15:34 IMPRESSION: 1. Low-density collection inferior to the rectum extending into the perineum suspicious for perirectal abscess. 2. Hyperdense mass in the lateral aspect left kidney which may represent hemorrhagic cyst. Further evaluation with ultrasound may be beneficial. Electronically Signed: Jm Carlos MD at 16:10 EST ,
[2024-06-20 18:23] LABS: Potassium 5.1 mmol/L (3.5-5.1)
--- NOTE | 2024-06-20 18:57 | PRE.ANES_ITS ---
ASA Classification* ASA Classification ASA Classification: 3 and E Assessment & Plan Anesthesia* Anesthesia Assessment Anesthesia Assessment: Discussed sedation and/or anesthesia options, risks, benefits, and alternatives with patient/parents/legal guardian/POA. Questions invited. The patient/parents/legal guardian/POA seems to understand and agrees to proceed with anesthesia plan. Reviewed the physical assessment, medical history, allergy history and patient home medications list prior to surgery/procedure/anesthetic and documented any changes. Performed airway and anesthesia risk assessments. Anesthesia Type Anesthesia Type: General (see written pre anesthesia record for full assessment) Anesthesia Focused Assessment* Temperature: 98.5 F Pulse Rate: 85 Blood Pressure: 154/68 Respiratory Rate: 18 Pulse Ox: 97 Airway Assessment Mouth opens: >3 cm Mallampati Score: II Focused Labs Anesthesia Preop lab: CBC WBC 12.5 K/mm3 (4.4-11.0) H 06/20/24 14:04 RBC 4.21 M/mm3 (4.6-6.2) L 06/20/24 14:04 Hgb 11.9 g/dL (13.0-16.5) L 06/20/24 14:04 Hct 35.9 % (40-54) L 06/20/24 14:04 Plt Count 244 K/mm3 (150-450) 06/20/24 14:04 CHEMISTRY Potassium 5.1 mmol/L (3.5-5.1) 06/20/24 17:55 Sodium 139 mmol/L (136-145) 06/20/24 14:04 BUN 37 mg/dL (7-18) H 06/20/24 14:04 Creatinine 1.81 mg/dL (0.70-1.30) H 06/20/24 14:04 Glucose 160 mg/dL (74-106) H 06/20/24 14:04 POC Glucose 170 mg/dL (70-110) H 05/26/19 10:58 COAG PT 12.9 SECONDS (11.7-14.9) 05/25/19 14:01 Pre-Assessment Diagnosis/Proposed Procedure Planned Operative Procedure(s): i and d of a rectal abscess Anesthesia History Anesthesia History - infusion therapy nurse: Anesthesia History - infusion therapy nurse Hx Hospitalization Any Problems With Anesthesia Cholinesterase deficiency You/Your Family Experience fever (hyperthermia) with Relationship Recent Exposure to Contagious Disease Does patient have nerve stimulator Patient instructed to have device shut off --Does patient have Pacemaker or ICD? When Was Last Pacemaker Check QUESTION #4 FULL TEXT: You/Your Family Experience fever (hyperthermia) with Anesthesia Last Oral Intake Last Oral intake: Last Oral Intake NPO since Meds taken in AM with sips of water? Meds patient instructed to take am of surgery PONV PONV - infusion therapy nurse: PONV - infusion therapy nurse Female HX of Motion Sickness HX of N/V After Surgery Non-Smoker Duration of Surgery greater than 60 minutes Number of Risk Factors PONV Score Height & Weight Height & Weight: Anesthesia: Height & Weight Height 5 ft 9 in 06/20/24 13:35 Weight: 89.403 kg 06/20/24 13:35 Body Mass Index (BMI) 29.0 06/20/24 13:35 Respiratory Assessment Respiratory Assessment - infusion therapy nurse: Respiratory Tract Infection Hx - infusion therapy nurse Hx Respiratory Tract Infection STOP Sleep Apnea STOP Sleep Apnea - infusion therapy nurse: STOP Sleep Apnea - infusion therapy nurse Hx Hypertension Yes 05/26/19 08:21 Hx Sleep Apnea No 05/25/19 16:02 CPAP BIPAP Do you snore loudly (louder than talking or can be heard Do you often feel tired/ fatigued/ sleepy during daytime? Has anyone observed you stop breathing during sleep? STOP Results QUESTION #5 FULL TEXT : Do you snore loudly (louder than talking or can be heard through closed doors)? 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 Specify any problems Hx of Preganancy in last 3 Months Nurse Filling Out Transfusion & Questions: Date: Time: Patient unable to answer at this time (ie. confused, unrespo /Reproduction History /Reproductive History - infusion therapy nurse: /Reproductive Hx- infusion therapy nurse Hx Now Gestational Age (in weeks): EDC: Hx Hx Para Hx Section SAB Active Medications Active Medications: Current Medications Generic Name Dose Route Start Last Admin Trade Name Freq PRN Reason Stop Dose Admin Acetaminophen 650 mg 06/20/24 18:40 Acetaminophen 325 Mg Tablet PO Q4H PRN PRN Fever, pain 1-05/04 Albuterol Sulfate 2.5 mg 06/20/24 18:40 Albuterol 2.5 Mg/3 Ml Vial.Neb. INHALATION Q2H PRN PRN Dyspnea, wheezing Amlodipine Besylate 5 mg 06/21/24 10:00 Amlodipine 5 Mg Tablet PO DAILY [facility] Aspirin 81 mg 06/21/24 08:00 Aspirin 81 Mg Tab.Chew PO BREAKFAST [facility] Atorvastatin Calcium 20 mg 06/21/24 10:00 Atorvastatin Calcium 20 Mg Tablet PO DAILY [facility] Carvedilol 6.25 mg 06/21/24 08:00 Carvedilol 6.25 Mg Tablet PO BIDCM [facility] Protocol Hydralazine HCl 10 mg 06/20/24 18:40 Hydralazine 20 Mg/Ml Vial IV Q4H PRN PRN SBP > 160 Protocol Sodium Chloride 1,000 mls @ 150 mls/hr 06/20/24 15:25 06/20/24 15:35 IV 06/20/24 22:04 150 mls/hr .[id number] [facility] Administration Protocol Insulin Human Lispro 0 unit 06/20/24 22:00 Insulin Lispro 100 Unit/Ml Insuln.Pen SC ACHS [facility] Protocol Lisinopril 10 mg 06/21/24 10:00 Lisinopril 10 Mg Tablet PO DAILY [facility] Tamsulosin HCl 0.4 mg 06/21/24 10:00 Tamsulosin Hcl 0.4 Mg Capsule PO DAILY [facility] PFSH Medical History Neuropathy CKD (chronic kidney disease) stage 3, GFR 30-59 ml/min Hyperlipidemia Gout Essential hypertension Type 2 diabetes mellitus without complication BPH (benign prostatic hyperplasia) TIA (transient ischemic attack) (~04/2019) Home Medications ?Medication ?Instructions ?Recorded ?Last Taken ?Type tamsulosin 0.4 mg capsule 0.4 mg PO DAILY urinary 05/25/19 05/25/19 History aspirin 81 mg chewable tablet 81 mg PO DAILY@0800 05/26/19 Unknown Rx simvastatin 40 mg tablet 40 mg PO DAILY #30 tabs 05/26/19 Unknown Rx dapagliflozin propanediol 10 mg 10 mg PO DAILY 06/20/19 Unknown History tablet (Farxiga) indomethacin 50 mg capsule 50 mg PO DAILY PRN gout 06/20/19 Unknown History metformin 500 mg tablet,extended 2,000 mg PO DAILY dm 06/20/19 Unknown History release 24 hr omega-3 fatty acids 500 mg capsule 500 mg PO .COMPLEX 06/20/19 Unknown History amlodipine 5 mg-benazepril 10 mg 1 cap PO DAILY 06/20/24 Unknown History capsule carvedilol 6.25 mg tablet 6.25 mg PO BIDCM Blood Pressure 06/20/24 Unknown History clopidogrel 75 mg tablet 75 mg PO DAILY 06/20/24 Unknown History Allergy/AdvReac Type Severity Reaction Status Date / Time Penicillins Allergy Intermediate Unknown Verified 06/20/24 13:37 pioglitazone Allergy Intermediate Rash Verified 06/20/24 13:37 Family History Father Heart disease Myocardial infarction Mother Cancer leukemia Surgical History History of colonoscopy with polypectomy (~2015) History of prostate biopsy (~2012) Social History Smoking Status: Never smoker alcohol intake: never substance use type: does not use caffeine: Yes Type: coffee Number of servings: 2 Review of Systems (Anesthesia) ROS Narrative System reviewed and no additional complaints, except as documented.
[2024-06-20 19:46] LABS: Magnesium 1.7 mg/dL (1.6-2.6)
[2024-06-20 20:02] LABS: Bedside Glucose 109 mg/dL (74-106)
[2024-06-20] MEDS: Bupivacaine 0.25% 30 ML Vial (20:15)
--- NOTE | 2024-06-20 20:33 | PCM.POST.ANE ---
Anesthesia: Postop Eval I Current Vital Signs Temperature: 97.2 F Pulse Rate: 75 Blood Pressure: 148/65 Respiratory Rate: 20 Pulse Ox: 98 Assessment Airway patent: Yes Spontaneous unlabored respirations: Yes nausea: No Vomiting: No Anesthesia Complication: No Fluid Hydration Crystalloid volume administer (ml): 200 Total IV fluid infused: 200 Progress Note Anesthesia document: Postop Eval 1 completed: Yes
--- NOTE | 2024-06-20 21:00 | OP.PCM_ITS ---
Operative Report (Standard) Operative Information Surgery/Procedure Performed: Incision and drainage of perineal abscess Surgeon: Tray Castillo Date of Procedure: 06/20/24 Procedure Start Time: 19:52 Procedure Stop Time: 20:19 Pre-Operative Diagnosis: Perineal/perirectal abscess Post-Operative Diagnosis: Same Select all DRAINS/GRAFTS/IMPLANTS that apply: None Type of Anesthesia: General/Supplemental Estimated Blood Loss: 25 Specimen collected: Yes Description of specimen(s) removed: Culture Description of surgery: After confirming written consent, patient was brought to the operating room where he was positioned supine on the operating room table in there he underwent a general anesthetic by anesthesia. He was then repositioned in the right lateral decubitus position with care taken to protect the bony prominences as well as the neurovascular bundles (placement of an axillary roll was made). The peritoneal region was clipped of pubic hair and then prepped and draped in the usual sterile fashion. A verbal timeout was conducted to confirm the patient and procedure. Then the area was anesthetized with a local block using 10 mL of quarter percent bupivacaine. A scalpel blade was used to make a stab incision in the area of greatest fluctuance. This resulted in immediate discharge of a pickering/purple purulence. To facilitate ongoing drainage I chose to unroofed the cavity by excising an approximately 1 x 2 cm oblong area of perineal skin which was submitted for wound tissue culture. Manual pressure was applied to further express this discharge until the cavity appeared empty. Estimated drainage volume was about 75 mL. The cavity was then swabbed for culture and copiously irrigated with sterile saline. The cavity was packed tightly with a lap sponge to assist with hemostasis. Selective electrocautery was used about the wound edges to address some marcela bleeding. Then wound measurements were obtained and the cavity was packed with half inch iodoform gauze. Fluffed gauzes were taped over the site. Patient was cleaned up and returned to a supine position where he was extubated. He tolerated the procedure without any apparent complication. Surgical Findings: Wound dimensions primary: 3.0 cm x 1.0 x 3.0 (depth) Undermining Anterior: 5.5 cm Medial: 3.5 cm No lateral undermining Posterior: 5.0 cm Certified Mortician director of mechanical engineering: No Complications Complications: No Admit VTE Documentation VTE Mechan Device Prophylaxis: SCD's Procedures Integumentary 10xxx: 84086 Drainage of skin abscess
[2024-06-20 22:52] LABS: Bedside Glucose 130 mg/dL (74-106)
[2024-06-21] MEDS: metroNIDAZOLE 500 MG/100 ML BAG 100 MG IV ×3 (00:05→13:31)
[2024-06-21] MEDS: Acetaminophen 325 MG Tablet 650 MG PO (00:15)
[2024-06-21 04:06] VITALS: BP 137/67; PULSE 65; RESP 15; TEMP 37.2; O2SAT 97
[2024-06-21 07:08] LABS: Bedside Glucose 98 mg/dL (74-106)
[2024-06-21 07:43] LABS: Absolute Neutrophil Count 7.5 X10^3/uL (2.0-7.7); Basophil# 0.06 X10^3/uL; Basophil% 0.6 % (0-1); Eosinophil# 0.47 X10^3/uL; Eosinophils% 4.4 % (0-5); Hemoglobin 10.7 g/dL (13.0-16.5); Lymphocyte % 15.9 % (19-41); Mean Corp Hgb Conc 33.4 g/dL (32-36); Mean Corpuscular Hgb 28.8 pg (27.0-32.0); Mean Corpuscular Volume 86.3 fL (80-94); Mean Platelet Vol. 10.6 fl (6.2-12.0); Monocyte% 7.5 % (0-10); NRBC Flagged by Analyzer 0 % (0-5); Neutrophil # 7.52 X10^3/uL (2.7-7.7); Neutrophil % 70.5 % (47-70); Platelet Count 224 K/mm3 (150-450); RBC Distribution Width CV 13.2 % (11.6-14.6); RBC Distribution Width SD 41.3 fl (35.1-43.9); Red Blood Count 3.71 M/mm3 (4.6-6.2); White Blood Count 10.7 K/mm3 (4.4-11.0)
[2024-06-21 07:48] VITALS: O2SAT 96
[2024-06-21 08:33] VITALS: BP 128/58; PULSE 73; RESP 18; TEMP 37.1; O2SAT 96
[2024-06-21] MEDS: Atorvastatin Calcium 20 MG Tablet PO (08:37)
[2024-06-21] MEDS: amLODIPine 5 MG Tablet PO (08:37)
[2024-06-21] MEDS: Tamsulosin HCl 0.4 MG Capsule PO (08:37)
[2024-06-21] MEDS: Carvedilol 6.25 MG Tablet PO (08:37)
[2024-06-21] MEDS: Lisinopril 10 MG Tablet PO (08:37)
[2024-06-21] MEDS: Aspirin 81 MG TAB.CHEW PO (08:37)
[2024-06-21 08:45] LABS: ALB/GLOB Ratio 0.7 RATIO (0.9-2.4); AST(SGOT) 4 U/L (15-37); Alanine Aminotransfer ALT/SGPT < 6 U/L (16-61); Albumin, Serum 2.4 g/dL (3.2-5.0); Alkaline Phosphatase 86 U/L (45-117); Anion Gap 3 (5-15); BUN 28 mg/dL (7-18); BUN/Creat Ratio 18.4 RATIO (10-20); Calcium,Total 8.5 mg/dL (8.5-10.1); Chloride 115 mmol/L (98-107); Creatinine, Serum 1.52 mg/dL (0.70-1.30); EST Glomerular Filtration Rate 47 mL/min (>60); Est Glom Filt Rate - Afr Amer 57 mL/min (>60); Globulin 3.3 g/dL (2.2-4.2); Glucose 102 mg/dL (74-106); Magnesium 1.6 mg/dL (1.6-2.6); Potassium 4.8 mmol/L (3.5-5.1); Protein, Total 5.7 g/dL (6.4-8.2); Sodium Level 142 mmol/L (136-145)
--- NOTE | 2024-06-21 09:04 | PN.SURG_ITS ---
Subjective Subjective Patient seen and examined during AM rounds. He is found resting comfortably in bed. He confirms that he is feeling better. Objective Data Objective Data Vital Signs: Vital Signs Temp Pulse Resp BP Pulse Ox O2 Del Method 98.8 F 73 18 128/58 H 96 Room Air 06/21/24 08:33 06/21/24 08:33 06/21/24 08:33 06/21/24 08:33 06/21/24 08:33 06/21/24 08:33 Oxygen Delivery Method Room Air Weight: 192 lb 7.417 oz Body Mass Index (BMI) 28.4 Intake & Output: Intake and Output for Last 24 Hours 06/19/24 06/20/24 06/21/24 23:59 23:59 23:59 Intake Total 1150 / 1150 200 / 200 Output Total 550 / 550 Balance 1150 / 1150 -350 / -350 Lab / Micro Data 06/21/24 06:24 06/21/24 06:24 Labs: Laboratory Results - last 24 hr 06/20/24 14:02: Magnesium 1.7 06/20/24 14:04: WBC 12.5 H, RBC 4.21 L, Hgb 11.9 L, Hct 35.9 L, MCV 85.3, MCH 28.3, MCHC 33.1, RDW Std Deviation 40.4, RDW Coeff of Stefano 13.2, Plt Count 244, MPV 10.4, Immature Gran % (Auto) 1.100 H, Neut % (Auto) 73.1 H, Lymph % (Auto) 12.8 L, Kent[place] % (Auto) 8.6, Eos % (Auto) 3.8, Baso % (Auto) 0.6, Absolute Neuts (auto) 9.1 H, Absolute Lymphs (auto) 1.60, Nucleated RBC % 0, Sodium 139, P otassium 5.4 H, Chloride 110 H, Carbon Dioxide 26.0, Anion Gap 3 L, BUN 37 H, C reatinine 1.81 H, Estim Creat Clear Calc 36.00, Est GFR (MDRD) Af Amer 47 L, Est GFR (MDRD) Non-Af 38 L, BUN/Creatinine Ratio 20.4 H, Glucose 160 H, Calcium 9.0 06/20/24 15:32: Lactic Acid 1.0 06/20/24 17:55: Potassium 5.1 06/20/24 19:28: POC Glucose 109 H 06/20/24 22:24: POC Glucose 130 H 06/21/24 06:24: WBC 10.7, RBC 3.71 L, Hgb 10.7 L, Hct 32.0 L, MCV 86.3, MCH 28.8, MCHC 33.4, RDW Std Deviation 41.3, RDW Coeff of Stefano 13.2, Plt Count 224, MPV 10.6, Immature Gran % (Auto) 1.100 H, Neut % (Auto) 70.5 H, Lymph % (Auto) 15.9 L, Kenton % (Auto) 7.5, Eos % (Auto) 4.4, Baso % (Auto) 0.6, Absolute Neuts (auto) 7.5, Absolute Lymphs (auto) 1.70, Nucleated RBC % 0, Sodium 142, Potassium 4.8, Chloride 115 H, Carbon Dioxide 24.0, Anion Gap 3 L, BUN 28 H, C reatinine 1.52 H, Estim Creat Clear Calc 42.40, Est GFR (MDRD) Af Amer 57 L, Est GFR (MDRD) Non-Af 47 L, BUN/Creatinine Ratio 18.4, Glucose 102, Calcium 8.5, Magnesium 1.6, Total Bilirubin 0.40, AST 4 L, ALT < 6 L, Alkaline Phosphatase 86, Total Protein 5.7 L, Albumin 2.4 L, Globulin 3.3, Albumin/Globulin Ratio 0.7 L 06/21/24 06:30: POC Glucose 98 Radiography Diagnostic Testing: Radiology Impression Abdomen/Pelvis CT 06/20/24 15:34 IMPRESSION: 1. Low-density collection inferior to the rectum extending into the perineum suspicious for perirectal abscess. 2. Hyperdense mass in the lateral aspect left kidney which may represent hemorrhagic cyst. Further evaluation with ultrasound may be beneficial. Electronically Signed: Jm Carlos MD at 16:10 EST , Rhythm Strip Rhythm Strip: Sinus Rhythm Rate: 71 Ectopy: None Physical Exam Const oriented x3 and no apparent distress Resp normal respiratory effort GI GI Narrative: Patient with narrowing margin of cellulitic changes and even decreased induration. Cavity is probed and I find no undisturbed loculations of purulence. The cavity bed looks viable. Assessment & Plan Assessment/Plan (1) Perineal abscess: PLAN: Patient 78-year-old male postoperative day 1 from operative incision and drainage procedure for large perineal abscess. He has symptomatically improved and, objectively, improved by his exam and resolution of his leukocytosis. Family was instructed at bedside on wound care measures. They expressed comfort with these measures. Was discharged home with expectation for ongoing antibiotic therapy as well as wound care and outpatient follow-up in 1 week. Tray Castillo MD General Surgery Endocrine Surgery Pager: [facility] [address] [place] [address] [place] [address] Office: [phone] Charges/Coding Visit Charges Inpatient E&M: 12316 Subs Hosp L2
[2024-06-21] MEDS: Cefepime HCl 2 GM in 0.9% Normal Saline (100mL MB+) 100 ML IV (09:44)
[2024-06-21] MEDS: 0.9% Saline Lock 10 ML Syringe IV ×3 (09:56→11:55)
--- NOTE | 2024-06-21 09:57 | POSTOPAN2_ITS ---
Anesthesia Postop Eval I Sum Postop Eval Completion status Anesthesia document: Postop Eval 1 completed: Yes Anesthesia Postop Eval I Summary Anesthesia Postop Eval I Summary: Anesthesia Postop Eval I: Assessment Summary Airway patent Yes 06/20/24 20:33 [email or web address] Spontaneous unlabored Yes 06/20/24 20:33 BOLT [email or web address] respirations Mental status nausea No 06/20/24 20:33 BOLT [email or web address] Vomiting No 06/20/24 20:33 [email or web address] Anesthesia Postop Eval I: Fluid Summary Crystalloid volume administer 200 06/20/24 20:33 [email or web address] (ml) Colloids volume administered ( ml) Blood Product volume administered (ml) Total IV fluid infused 200 06/20/24 20:33 [email or web address] Anesthesia Postop Eval I: Summary Notes Anesthesia Complication No 06/20/24 20:33 BOLT [email or web address] Anesthesia Complication Comment: Post-operative progress note Anesthesia: Postop Eval II Evaluation Mental status: Awake Pain Level: 0 nausea: No Vomiting: No
--- NOTE | 2024-06-21 09:57 | PCM.POSTANE2 ---
Anesthesia Postop Eval I Sum Postop Eval Completion status Anesthesia document: Postop Eval 1 completed: Yes Anesthesia Postop Eval I Summary Anesthesia Postop Eval I Summary: Anesthesia Postop Eval I: Assessment Summary Airway patent Yes 06/20/24 20:33 [email or web address] Spontaneous unlabored Yes 06/20/24 20:33 [email or web address] [email or web address] respirations Mental status nausea No 06/20/24 20:33 [email or web address] [email or web address] Vomiting No 06/20/24 20:33 [email or web address] [email or web address] Anesthesia Postop Eval I: Fluid Summary Crystalloid volume administer 200 06/20/24 20:33 [email or web address] [email or web address] (ml) Colloids volume administered ( ml) Blood Product volume administered (ml) Total IV fluid infused 200 06/20/24 20:33 [email or web address] [email or web address] Anesthesia Postop Eval I: Summary Notes Anesthesia Complication No 06/20/24 20:33 WRAPPER OFF.[email or web address] Anesthesia Complication Comment: Post-operative progress note Anesthesia: Postop Eval II Evaluation Mental status: Awake Pain Level: 0 nausea: No Vomiting: No
--- NOTE | 2024-06-21 10:10 | CASEMGMT ---
Addendum entered by Anastasia Stephenson 06/21/24 14:22: Spoke with wound nurse who states pt was present for dressing change. Pt to dc today. Original Note: MARLENE LAU Assessment: Face to Face with pt for initial transition planning/care coordination assessment. MARLENE LAU introduced self and role at [facility], pt voices understanding and consents to assessment. Pt is A&O x4 and answers all questions appropriately at this time. Pt lying in bed in no distress with at bedside. Care providers, pharmacy, and demographics verified/updated. Admitting Dx: perianal abscess Strata Score: 2 PCP:Tyson Specialists:pedro Crowder Preferred Pharmacy: [facility] Insurance: [employer] Prescription Benefit: yes LNOK: Umu Kitchen, ; Becca Patel, dtr Living Arrangements: Pt lives with in a 3 story home with 2 steps to enter. Pt reports he is I in ADLs and denies concerns at home. Transportation: Pt drives self and denies concerns with transportation. DME:[facility] HHC/SNF: Denies hx of Pt states no concerns with going home at time of dc. Pt states she would be able to do wound care if need be. Pt and deny need for HHC stating we don't want that. Pt states no further concerns/needs. CM to follow. Advised pt to ask CM if any further question/concerns/needs arise, voices understanding. Pt Goal: Home with performing wound care Plan: Home with performing wound care Cruz ROSARIO CM
--- NOTE | 2024-06-21 11:29 | WOUNDNOTE ---
wound photo: perineum
[2024-06-21] MEDS: HYDROmorphone 1 MG/ML Syringe 0.5 MG IV (11:45)
[2024-06-21 11:56] LABS: Bedside Glucose 123 mg/dL (74-106)
[2024-06-21 13:35] VITALS: BP 127/55; PULSE 63; RESP 18; TEMP 36.7; O2SAT 94
--- NOTE | 2024-06-21 14:05 | DCINST_ITS ---
Discharge Instructions Diet Discharge Diet: Carb Control Diet (Focus on consuming protein calories) DC O2, CPAP, BIPAP needs Additional Home O2 Discharge instructions: No Dressing / Incision Discharge Activity: May Drive (No driving while using narcotic pain medication) Weight Bearing Status: Weight bearing as tolerated Dressing / Incision Call your doctor if your incision/area has: Continuous Slow Oozing, Sudden Increased Bleeding, Increased Pain/ Swelling, Increased Redness, Foul Smelling Discharge and Swelling at the incision site Call your doctor if you observe: Fever of 101 or Higher, Inability to urinate and Inability to have a bowel movement Change Dressing in: 1 day Cleanse incision/area with: Soap & Water Additional Dressing/Incision Instructions:: Please remove packing, shower and allow water to irrigate the surgical cavity and then repack Follow Up Care Please Follow Up With: Tray Castillo MD When: 7 days postop Test Results: Test results from this visit will be discussed in further detail at your follow- up appointment, if applicable. Discharge Plan Admission Admit Date/Time: 06/20/24 20:54 Primary Reason for Your Visit: Perineal abscess drainage Attending Provider: Michael Mora Primary Care Provider: ALEXANDER PIERRE Consulting Providers: Tray Castillo; Michael Mora Discharge Orders/Prescriptions Prescriptions: New cefdinir 300 mg capsule 300 mg PO Q12H 7 Days Qty: 14 0RF metronidazole 500 mg tablet 500 mg PO Q8H 7 Days Qty: 21 0RF Continued omega-3 fatty acids 500 mg capsule 500 mg PO .COMPLEX Rx Instructions: take 2 capsules in the AM, 1 capsule PM Farxiga 10 mg tablet 10 mg PO DAILY indomethacin 50 mg capsule 50 mg PO DAILY PRN (Reason: gout) tamsulosin 0.4 MG capsule 0.4 mg PO DAILY aspirin 81 MG tablet,chewable 81 mg PO DAILY@0800 0RF simvastatin 40 MG tablet 40 mg PO DAILY Qty: 30 0RF metformin 500 mg tablet extended release 24 hr 2,000 mg PO DAILY amlodipine-benazepril 5-10 mg capsule 1 cap PO DAILY carvedilol 6.25 mg tablet 6.25 mg PO BIDCM Discontinued clopidogrel 75 mg tablet 75 mg PO DAILY Referrals / Follow Up: ALEXANDER PIERRE DO [Primary Care Provider] - Disposition Disposition (needs filled in before D/C Order can be placed): Home, Self Care
--- NOTE | 2024-06-21 14:15 | DS.PCM_ITS ---
Providers Date of Admission: 06/20/24 Primary Care Physician: ALEXANDER PIERRE DO Consultations 06/21/24 07:44 Consult: Hospitalist Routine Consulting Provider: Michael Mora Reason for Consult: Medical management EMERGENT Consult: No MD Notified: Yes Date Notified: 06/21/24 Time Notified: 07:44 Method of Notification: Verbal Comments:: Dr. Mora Reason For Visit: PERIANAL ABSCESS Diagnosis Discharge Diagnosis (1) Perineal abscess: Status: Acute Code(s): L02.215 - Cutaneous abscess of perineum Plan: Patient is an 78-year-old diabetic male who presents with 1 week of progressive perineal discomfort and ER workup is consistent with a perineal/perirectal abscess. On exam the area seems to be much fluctuant in the perineum but does seem to arise more from the rectum than the scrotum. There is no spontaneous drainage. Given patient's diabetes and mild leukocytosis I favor proceeding sooner than later with incision and drainage and given the location of this abscess I believe he would be most comfortable in an operative setting. This impression was shared with patient and his family and they are in agreement. I then notified both the operating room staff and anesthesia and patient will be taken down shortly to be further evaluated and optimized by anesthesia for the procedure. Anticipate some postoperative wound care with packing will be required. Will also plan to consult hospitalist service given apparent MAGDALENO on CKD with hyperkalemia. Tray Castillo MD General Surgery Endocrine Surgery Pager: [facility] [address] [place] [address], [address] [place] [address] Office: [phone] Medications at Discharge Home Medications tamsulosin 0.4 mg capsule 0.4 mg PO DAILY urinary 05/25/19 aspirin 81 mg chewable tablet 81 mg PO DAILY@0800 05/26/19 simvastatin 40 mg tablet 40 mg PO DAILY #30 tabs 05/26/19 dapagliflozin propanediol 10 mg tablet (Farxiga) 10 mg PO DAILY 06/20/19 indomethacin 50 mg capsule 50 mg PO DAILY PRN gout 06/20/19 metformin 500 mg tablet,extended release 24 hr 2,000 mg PO DAILY dm 06/20/19 omega-3 fatty acids 500 mg capsule 500 mg PO .COMPLEX 06/20/19 amlodipine 5 mg-benazepril 10 mg capsule 1 cap PO DAILY 06/20/24 carvedilol 6.25 mg tablet 6.25 mg PO BIDCM Blood Pressure 06/20/24 cefdinir 300 mg capsule 300 mg PO Q12H 7 days #14 caps 06/21/24 metronidazole 500 mg tablet 500 mg PO Q8H 7 days #21 tabs 06/21/24 Hospital Course Operations - (Operative incision and drainage procedure of perineal abscess) Procedures None Summary of Care Provided Hospital Course: Patient is an 78-year-old male who presented to [facility] ER in the direction from Dr. Reyez after he first presented to urology as an outpatient and general surgery was contacted. In the emergency department patient was found to have mild leukocytosis and CT imaging was performed showing a probable abscess of the perineum. This was confirmed with bedside exam and the patient was posted emergently to the operating room where he underwent incision and drainage of a perineal abscess evening of 06/20/2024. Postoperative day 1 patient was seen evaluated and found to be improved for his pain control as well as demonstrated clinical improvement in his labs with resolution of his white blood cell count. Regarding his physical exam, patient was examined after packing was removed and he to had time to shower. The area was then repacked with family present to provide education on ongoing wound care. After confirming their comfort with this wound care patient was advanced for a regular diet (carbohydrate controlled) and advance to an oral antibiotic. He was then granted discharge to home with expectation for outpatient follow-up in 1 week. Physical Exam Const alert, oriented x3 and no apparent distress Skin Skin Narrative: Improved appearance of perineal skin with less erythema and narrowing area of induration. Base of the wound remained viable and there is no significant bleeding. Weight / BMI Weight Weight: 192 lb 7.417 oz Body Mass Index (BMI) 28.4 ABG / Lab / Microbiology Data 06/21/24 06:24 06/21/24 06:24 Laboratory: Laboratory Results - last 24 hr 06/20/24 14:02: Magnesium 1.7 06/20/24 14:04: Sodium 139, Potassium 5.4 H, Chloride 110 H, Carbon Dioxide 26.0, Anion Gap 3 L, BUN 37 H, Creatinine 1.81 H, Estim Creat Clear Calc 36.00, Est GFR (MDRD) Af Amer 47 L, Est GFR (MDRD) Non-Af 38 L, BUN/Creatinine Ratio 20.4 H, Glucose 160 H, Calcium 9.0 06/20/24 15:32: Lactic Acid 1.0 06/20/24 17:55: Potassium 5.1 06/20/24 19:28: POC Glucose 109 H 06/20/24 22:24: POC Glucose 130 H 06/21/24 06:24: WBC 10.7, RBC 3.71 L, Hgb 10.7 L, Hct 32.0 L, MCV 86.3, MCH 28.8, MCHC 33.4, RDW Std Deviation 41.3, RDW Coeff of Stefano 13.2, Plt Count 224, MPV 10.6, Immature Gran % (Auto) 1.100 H, Neut % (Auto) 70.5 H, Lymph % (Auto) 15.9 L, [place] % (Auto) 7.5, Eos % (Auto) 4.4, Baso % (Auto) 0.6, Absolute Neuts (auto) 7.5, Absolute Lymphs (auto) 1.70, Nucleated RBC % 0, Sodium 142, Potassium 4.8, Chloride 115 H, Carbon Dioxide 24.0, Anion Gap 3 L, BUN 28 H, C reatinine 1.52 H, Estim Creat Clear Calc 42.40, Est GFR (MDRD) Af Amer 57 L, Est GFR (MDRD) Non-Af 47 L, BUN/Creatinine Ratio 18.4, Glucose 102, Calcium 8.5, Magnesium 1.6, Total Bilirubin 0.40, AST 4 L, ALT < 6 L, Alkaline Phosphatase 86, Total Protein 5.7 L, Albumin 2.4 L, Globulin 3.3, Albumin/Globulin Ratio 0.7 L 06/21/24 06:30: POC Glucose 98 06/21/24 11:36: POC Glucose 123 H Radiography Diagnostic Testing: Radiology Impression Abdomen/Pelvis CT 06/20/24 15:34 IMPRESSION: 1. Low-density collection inferior to the rectum extending into the perineum suspicious for perirectal abscess. 2. Hyperdense mass in the lateral aspect left kidney which may represent hemorrhagic cyst. Further evaluation with ultrasound may be beneficial. Electronically Signed: Jm Carlos MD at 16:10 EST , D/C Instructions Discharge Diet: Carb Control Diet (Focus on consuming protein calories) Weight Bearing Status: Weight bearing as tolerated Call your doctor if your incision/area has: Continuous Slow Oozing, Sudden Increased Bleeding, Increased Pain/ Swelling, Increased Redness, Foul Smelling Discharge and Swelling at the incision site Call your doctor if you observe: Fever of 101 or Higher, Inability to urinate and Inability to have a bowel movement Cleanse incision/area with: Soap & Water Additional Dressing/Incision Instructions: Please remove packing, shower and allow water to irrigate the surgical cavity and then repack DC O2, CPAP, BIPAP Needs Additional Home O2 Discharge instructions: No DC home with Oxygen: No Please Follow Up With: Tray Castillo MD When: 7 days postop Meaningful Use Info Meaningful Use Meaningful Use Diagnoses (Choose all that apply): None applicable Ischemic Stroke Statin Dosing Therapy Reference: STATIN DOSE THERAPY REFERENCE: * Patients > 75 years receive moderate or high dose statin therapy. * Patients 75 years or YOUNGER should receive HIGH intensity statin dose unless contraindicated. You will be required to document reason for non-treatment if statin daily dose does not meet guidelines. HIGH DOSE STATIN THERAPY DAILY Atorvastatin > than or = to 40 mg Rosuvastatin > than or = to 20 mg Amlodipine + Atorvastatin > than or = to 2.5/40 mg Ezetimibe + Simvastatin 10/80 mg Simvastatin 80mg Discharge Plan Admission Admit Date/Time: 06/20/24 20:54 Primary Reason for Your Visit: Perineal abscess drainage Attending Provider: Michael Mora Primary Care Provider: ALEXANDER PIERRE Consulting Providers: Tray Castillo; Michael Mora Discharge Orders/Prescriptions Prescriptions: New cefdinir 300 mg capsule 300 mg PO Q12H 7 Days Qty: 14 0RF metronidazole 500 mg tablet 500 mg PO Q8H 7 Days Qty: 21 0RF Continued omega-3 fatty acids 500 mg capsule 500 mg PO .COMPLEX Rx Instructions: take 2 capsules in the AM, 1 capsule PM Farxiga 10 mg tablet 10 mg PO DAILY indomethacin 50 mg capsule 50 mg PO DAILY PRN (Reason: gout) tamsulosin 0.4 MG capsule 0.4 mg PO DAILY aspirin 81 MG tablet,chewable 81 mg PO DAILY@0800 0RF simvastatin 40 MG tablet 40 mg PO DAILY Qty: 30 0RF metformin 500 mg tablet extended release 24 hr 2,000 mg PO DAILY amlodipine-benazepril 5-10 mg capsule 1 cap PO DAILY carvedilol 6.25 mg tablet 6.25 mg PO BIDCM Discontinued clopidogrel 75 mg tablet 75 mg PO DAILY Referrals / Follow Up: ALEXANDER PIERRE DO [Primary Care Provider] - Disposition Disposition (needs filled in before D/C Order can be placed): Home, Self Care Charges/Coding Visit Charges Inpatient E&M: 89739 Disch Hosp
--- NOTE | 2024-06-21 15:07 | WOUNDNOTE ---
Had been in to assess the perineal I&D site with Dr Castillo. packing had been removed and patient showered. present and was instructed on packing the wound daily after pt showers and changing the outer dressing then as needed. Pt and wofe had declined home health care and feels she is able to perform the dressing change. pt will be sent home with some supplies. pt to follow in Dr Castillo's office next week. Pt tolerated well. see wound photo.
== END 2024-06-21 15:10 | disposition home or self-care (01) ==
LOC: ED 18:09 → MS3 06-21 01:16 → SDC 06-23 09:56 → MS3 06-23 09:58
PROVIDERS: Family Medicine; Admitting Provider Surgery; Emergency Provider Emergency Medicine; PCP Family Medicine; Visit Provider Internal Medicine
PROC: (CPT 46040; principal; 2024-06-20 19:00)
DX: L02.215 Cutaneous abscess of perineum (principal); E11.22 Type 2 diabetes mellitus with diabetic chronic kidney disease; E11.40 Type 2 diabetes mellitus with diabetic neuropathy, unspecified; N18.30 Chronic kidney disease, stage 3 unspecified; E78.5 Hyperlipidemia, unspecified; Z79.02 Long term (current) use of antithrombotics/antiplatelets; I12.9 Hypertensive chronic kidney disease with stage 1 through stage 4 chronic kidney disease, or unspecified chronic kidney disease; Z79.84 Long term (current) use of oral hypoglycemic drugs; M10.9 Gout, unspecified; Z79.899 Other long term (current) drug therapy; E87.5 Hyperkalemia; N28.89 Other specified disorders of kidney and ureter; Z79.82 Long term (current) use of aspirin; D64.9 Anemia, unspecified
CPT/HCPCS: 10061; 00400; 36415; 74176; 80048; 80053; 82962; 83605; 83735; 84132; 85025; 87015; 87040; 87070; 87075; 87077; 87102; 87116; 87186; 87205; 87206; 93005; 96361; 96365; 96366; 96367; 96375; 99221; 99284; J7040; A4216; G0378

== ENCOUNTER 2024-06-23 16:00 | Emergency (ER) | payer MEDICARE, SELFPAY ==
[2024-06-23 16:03] VITALS: BP 161/90; PULSE 77; RESP 18; TEMP 36.4; O2SAT 99; BMI 28.4
--- NOTE | 2024-06-23 16:35 | EX.ED.DYSGE1 ---
HPI <TRACI Lozada - Last Filed: 06/23/24 17:15> History of Present Illness Chief Complaint: Allergic Reaction Narrative Narrative: 78-year-old male is concerned about an allergic reaction. He had a perirectal abscess surgically drained by Dr. Funk on Wednesday. Yesterday he started taking metronidazole and today he took the first dose of cefdinir. His states she spaced out the antibiotics because there was a lot of stuff in his system. This morning while showering she noticed a red rash on his back and it was very itchy. He has no other symptoms otherwise feels well has no shortness of breath vomiting diarrhea etc. PFSH <TRACI Lozada - Last Filed: 06/23/24 17:15> [facility] Medical History Neuropathy CKD (chronic kidney disease) stage 3, GFR 30-59 ml/min Hyperlipidemia Gout Essential hypertension Type 2 diabetes mellitus without complication BPH (benign prostatic hyperplasia) TIA (transient ischemic attack) (~04/2019) Home Medications ?Medication ?Instructions ?Recorded ?Last Taken ?Type tamsulosin 0.4 mg capsule 0.4 mg PO DAILY urinary 05/25/19 05/25/19 History aspirin 81 mg chewable tablet 81 mg PO DAILY@0800 05/26/19 Unknown Rx simvastatin 40 mg tablet 40 mg PO DAILY #30 tabs 05/26/19 Unknown Rx dapagliflozin propanediol 10 mg 10 mg PO DAILY 06/20/19 Unknown History tablet (Farxiga) indomethacin 50 mg capsule 50 mg PO DAILY PRN gout 06/20/19 Unknown History metformin 500 mg tablet,extended 2,000 mg PO DAILY dm 06/20/19 Unknown History release 24 hr omega-3 fatty acids 500 mg capsule 500 mg PO .COMPLEX 06/20/19 Unknown History amlodipine 5 mg-benazepril 10 mg 1 cap PO DAILY 06/20/24 Unknown History capsule carvedilol 6.25 mg tablet 6.25 mg PO BIDCM Blood Pressure 06/20/24 Unknown History cefdinir 300 mg capsule 300 mg PO Q12H 7 days #14 caps 06/21/24 Unknown Rx metronidazole 500 mg tablet 500 mg PO Q8H 7 days #21 tabs 06/21/24 Unknown Rx ciprofloxacin HCl 500 mg tablet 500 mg PO BID 7 days #14 tabs 06/23/24 Unknown Rx (Cipro) Allergy/AdvReac Type Severity Reaction Status Date / Time lisinopril Allergy Intermediate Swelling Verified 06/23/24 16:07 Penicillins Allergy Intermediate Unknown Verified 06/23/24 16:07 pioglitazone Allergy Intermediate Rash Verified 06/23/24 16:07 sulfamethoxazole Allergy Mild Rash Verified 06/23/24 16:07 venom-wasp (wasp) Allergy Mild Swelling Verified 06/23/24 16:07 Family History Father Heart disease Myocardial infarction Mother Cancer leukemia Surgical History History of colonoscopy with polypectomy (~2015) History of prostate biopsy (~2012) Social History Smoking Status: Never smoker alcohol intake: never substance use type: does not use caffeine: Yes Type: coffee Number of servings: 2 ROS <TRACI Lozada - Last Filed: 06/23/24 17:15> ROS ED ROS Narrative Constitutional: Negative for fever, chills. Respiratory: Negative for shortness of breath GI: Negative for ausea, vomiting, diarrhea. Skin: Positive for rash. EXAM <TRACI Lozada - Last Filed: 06/23/24 17:15> Physical Exam Narrative Exam Narrative: CONST: Patient sitting in no acute distress. EYES: Normal inspection. ENT: Normal inspection, moist mucous membranes. No angioedema. NECK: Normal inspection. No stridor or dysphonia. RESP: No respiratory distress, CTAB. CVS: Regular rate and rhythm, no murmur, no gallop. SKIN: Small scattered red macular spots across to his back. No other areas of rash noted. EXTREMITIES: Normal appearance, no pedal edema. NEURO: Alert and answering questions appropriately. PSYCH: Normal affect. Const Vital Signs: 06/23/24 16:03 06/23/24 16:39 Temperature 97.6 F L 97.8 F Temperature Source Oral Pulse Rate 77 77 Respiratory Rate 18 16 Blood Pressure 161/90 H 145/64 H Blood Pressure Mean 113 91 Pulse Ox 99 99 Oxygen Delivery Method Room Air <Dr. Uriel Beasley, - Last Filed: 06/23/24 16:44> Physical Exam Const Vital Signs: 06/23/24 16:03 06/23/24 16:39 Temperature 97.6 F L 97.8 F Temperature Source Oral Pulse Rate 77 77 Respiratory Rate 18 16 Blood Pressure 161/90 H 145/64 H Blood Pressure Mean 113 91 Pulse Ox 99 99 Oxygen Delivery Method Room Air [facility] <TRACI Lozada - Last Filed: 06/23/24 17:15> [facility] Narrative Medical decision making narrative: Patient has a red macular pruritic rash on his back after starting recent antibiotics. He had been on metronidazole for a day and then after taking cefdinir this morning developed a rash. He also has penicillins listed on his allergy so is more likely with cefdinir. He otherwise appears well, is afebrile and hemodynamically stable, and has no signs or symptoms of angioedema or anaphylaxis. Since he was started on antibiotics by general surgery I spoke with Dr. Reyez who agreed with stopping cefdinir and starting Cipro in addition to the Flagyl. Patient was advised to call the surgery office on Wednesday as his wound culture results may have returned by then. He was discharged in stable condition. <Dr. Uriel Beasley, - Last Filed: 06/23/24 16:44> [facility] Treatment and Re-Evaluation :: I have personally performed a face to face assessment of the patient and have reviewed the THAD Note. I performed a substantive portion of the visit including all aspects of the following. My mcknight findings include: History: Patient presents with possible allergic reaction that was noticed today. Patient was noted to have a rash on his back. Patient had a recent drainage of perianal abscess and was prescribed cefdinir and metronidazole. states patient started metronidazole yesterday and took first dose of cefdinir today. noted the rash later this morning after he had taken the cefdinir. Patient states the rash was pruritic. Patient states it is mainly over the low back. Patient denies any difficulty breathing or difficulty swallowing. Exam: Vital signs are stable. Patient is afebrile. Patient is in no acute distress. Skin is warm dry. There is a patchy erythematous papular rash over the lower back. There are no vesicles or pustules. There are no petechia noted. There is no discharge or drainage noted. There is no involvement of the palms or soles. There is no involvement of mucous membranes. Oral mucosa is pink and moist. Oropharynx is clear. Airway is patent. Cranial nerves II through XII are intact. There are no focal motor or sensory deficits. Medical Decision Making: Patient and were advised that it is more likely to be the cefdinir that which is causing the rash. Patient was instructed to stop taking cefdinir and was given a prescription for Cipro. Patient was instructed continue Flagyl as prescribed. Patient was instructed to follow-up with Dr. Castillo in 5 to 7 days. Patient was instructed return if worse in any way. Patient understood and was agreeable with the plan. All questions were answered. Discharge Plan Triage Chief Complaint: Allergic Reaction ED Midlevel Provider: Donya Oconnell ED Provider: Uriel Beasley Dx/Rx/DC Orders Clinical Impression: Allergic reaction, Acute maculopapular rash Instructions: ED ADVERSE DRUG REACTION Allergic Prescriptions: New ciprofloxacin HCl [Cipro] 500 mg tablet 500 mg PO BID 7 Days Qty: 14 0RF No Action omega-3 fatty acids 500 mg capsule 500 mg PO .COMPLEX Rx Instructions: take 2 capsules in the AM, 1 capsule PM Farxiga 10 mg tablet 10 mg PO DAILY indomethacin 50 mg capsule 50 mg PO DAILY PRN (Reason: gout) tamsulosin 0.4 MG capsule 0.4 mg PO DAILY aspirin 81 MG tablet,chewable 81 mg PO DAILY@0800 0RF simvastatin 40 MG tablet 40 mg PO DAILY Qty: 30 0RF metformin 500 mg tablet extended release 24 hr 2,000 mg PO DAILY amlodipine-benazepril 5-10 mg capsule 1 cap PO DAILY carvedilol 6.25 mg tablet 6.25 mg PO BIDCM cefdinir 300 mg capsule 300 mg PO Q12H 7 Days Qty: 14 0RF metronidazole 500 mg tablet 500 mg PO Q8H 7 Days Qty: 21 0RF Primary Care Provider: ALEXANDER PIERRE Referrals: ALEXANDER PIERRE DO [Primary Care Provider] - Tray Castillo MD [Med Staff - Active Staff] - Activity Restrictions/Additional Instructions: Stop taking cefdinir. Continue taking metronidazole. Start taking Ciprofloxacin. Call the surgery office on Wednesday and they can check the sensitivity results to see what antibiotics will work best. Print Language: Portuguese Disposition Disposition: Home, Self Care Discharge Date/Time: 06/23/24 16:43
[2024-06-23 16:39] VITALS: BP 145/64; PULSE 77; RESP 16; TEMP 36.6; O2SAT 99
== END 2024-06-23 16:43 | disposition home or self-care (01) ==
PROVIDERS: Emergency Provider Emergency Medicine; PCP Family Medicine; Visit Provider Emergency Medicine
DX: L27.1 Localized skin eruption due to drugs and medicaments taken internally (principal); E11.22 Type 2 diabetes mellitus with diabetic chronic kidney disease; N18.30 Chronic kidney disease, stage 3 unspecified; T36.1X5A Adverse effect of cephalosporins and other beta-lactam antibiotics, initial encounter; I12.9 Hypertensive chronic kidney disease with stage 1 through stage 4 chronic kidney disease, or unspecified chronic kidney disease; E78.5 Hyperlipidemia, unspecified; Z86.73 Personal history of transient ischemic attack (TIA), and cerebral infarction without residual deficits; N40.0 Benign prostatic hyperplasia without lower urinary tract symptoms; Z79.82 Long term (current) use of aspirin; Z79.899 Other long term (current) drug therapy; Z79.84 Long term (current) use of oral hypoglycemic drugs; M10.9 Gout, unspecified
CPT/HCPCS: 99282